=== PATIENT | male | born 1960 | race Caucasian/White ===

== ENCOUNTER 2018-12-12 06:37 | Day surgery (SDC) | payer MEDICARE, MEDICAID ==
--- NOTE | 2018-12-11 11:38 | PCM.PREANE ---
Preanesthetic Assessment - Anesthesia/Transfusion/Family Hx Anesthesia History: Prior Anesthesia Without Reaction Family History of Anesthesia Reaction: No Transfusion History: No Prior Transfusion(s) Intubation History: Unknown - Review of Systems General: No Symptoms Pulmonary: No Symptoms (Quit smoking in the /ETOH rarely) Cardiovascular: No Symptoms (HTN, Diastolic Dysfunction) Gastrointestinal: No Symptoms (History of gastritis) Neurological: No Symptoms (moderate intellectual disabilites), Numbness (right arm numbness since fall.) Other: Reports: Thyroid Problems (hypothyroid), Sinus Problem (allergic rhinits) - Physical Assessment NPO Status Date: 12/11/18 NPO Status Time: 17:00 Pulse: 75 O2 Sat by Pulse Oximetry: 95 Respiratory Rate: 16 Blood Pressure: 156/93 Temperature: 36.2 C Height: 1.73 m Weight: 106.141 kg ASA Class: 2 Mental Status: Alert & Oriented x3 Airway Class: Mallampati = 2 Dentition: Reports: Normal Dentition, Missing Tooth/Teeth Thyro-Mental Finger Breadths: 3 Mouth Opening Finger Breadths: 3 ROM/Head Extension: Full Lungs: Clear to Auscultation, Normal Respiratory Effort Cardiovascular: Regular Rate, Regular Rhythm, No Murmurs - Allergies Allergies/Adverse Reactions: Allergies Allergy/AdvReac Type Severity Reaction Status Date / Time codeine Allergy Mild Cannot Verified 12/11/18 12:28 Remember Penicillins Allergy Mild Cannot Verified 12/11/18 12:28 Remember procaine HCl [From Novocain] Allergy Mild Cannot Verified 12/11/18 12:28 Remember bee stings Allergy Severe Anaphylactic Uncoded 12/11/18 12:28 Shock wasps Allergy Severe Anaphylactic Uncoded 12/11/18 12:28 Shock - Anesthesia Plan Pre-Op Medication Ordered: Beta Ralf Beta Ralf: Metoprolol Med Last Dose Date: 12/11/18 Med Last Dose Time: 05:40 - Acknowledgements Anesthesia Type Planned: MAC Pt an Appropriate Candidate for the Planned Anesthesia: Yes Alternatives and Risks of Anesthesia Discussed w Pt/Guardian: Yes Pt/Guardian Understands and Agrees with Anesthesia Plan: Yes PreAnesthesia Questionnaire - HOME MEDS Home Medications: Home Meds Acetaminophen 650 mg PO Q4H PRN 12/11/18 [History] Camphor/Menthol [Sarna Lotion] 1 applic TP TID 12/11/18 [History] Cetirizine [ZyrTEC] 10 mg PO DAILY 12/11/18 [History] Cholecalciferol (Vitamin D3) [Vitamin D3] 1,000 units PO DAILY 12/11/18 [History ] Clotrimazole [Lotrimin AF 1% Crm] 30 gm TOP BID 12/11/18 [History] Docusate Sodium [Colace] 100 mg PO DAILY 12/11/18 [History] EPINEPHrine [Epinephrine] 0.3 mg IM ASDIRECTED PRN 12/11/18 [History] L. Acidophilus/L.bulgaricus [Lactobacillus Tablet] 1 tab PO DAILY 12/11/18 [ History] Levothyroxine [Synthroid] 50 mcg PO DAILY 12/11/18 [History] Menthol/Zinc Oxide [Calmoseptine] 1 applic TOP ASDIRECTED PRN 12/11/18 [History] Methylcellulose [Fiber Therapy] 500 mg PO DAILY 12/11/18 [History] Metoprolol Succinate [Toprol XL 50mg] 50 mg PO DAILY 12/11/18 [History] Multivitamin [Daily Multiple Vitamin] 1 tab PO DAILY 12/11/18 [History] Nabumetone 500 mg PO BID PRN 12/11/18 [History] Polyethylene Glycol 3350 [MiraLAX] 17 gm PO Q72H 12/11/18 [History] Psyllium [Metamucil] 0.52 gm PO DAILY 12/11/18 [History] Rosuvastatin [Crestor] 5 mg PO DAILY 12/11/18 [History] - CURRENT (IN HOUSE) MEDS Current Meds: Current Medications Lactated Ringer's (Ringers, Lactated) 1,000 mls @ 125 mls/hr IV ASDIRECTED K[facility] Stop: 12/12/18 23:00 Lidocaine/Sodium Bicarbonate (Buffered Lidocaine 1% In Ns 8.4%) 0.25 ml IDERM ONETIME PRN PRN Reason: Prior to IV Start Stop: 12/12/18 18:00 Sodium Chloride (Saline Flush) 10 ml FLUSH ASDIRECTED PRN PRN Reason: Keep Vein Open Stop: 12/12/18 18:00
[2018-12-12] MEDS ORDERED: fentaNYL 100 MCG/2 ML SDV ONE (06:49)
[2018-12-12] MEDS ORDERED: Propofol 200 MG/20 ML SDV ONE (06:49)
[2018-12-12] MEDS ORDERED: Lidocaine 1% 6 ML ONE (06:49)
[2018-12-12] MEDS ORDERED: Midazolam 1 MG/ML 2 ML SDV ONE (06:49)
[2018-12-12] MEDS ORDERED: Ondansetron 4 MG/2 ML SDV ONE (06:49)
[2018-12-12] MEDS ORDERED: Lactated Ringers 1,000 ML IV SCH (07:00)
[2018-12-12] MEDS ORDERED: Lidocaine 1%/Sod Bicarbonate in NS 8.4% 1 ML Syringe IDERM PRN (07:00)
[2018-12-12] MEDS ORDERED: Sodium Chloride 0.9% 10 ML Syringe FLUSH PRN (07:00)
[2018-12-12] MEDS ORDERED: Triamcinolone Acetonide 40 MG/ML 1 ML MDV ONE (07:01)
[2018-12-12] MEDS ORDERED: Bupivacaine 0.25% 10 ML SDV ONE (07:01)
--- NOTE | 2018-12-12 09:50 | PCM48HPAN ---
Post Anesthesia Note - EVALUATION WITHIN 48HRS OF ANESTHETIC Vital Signs in Normal Range: Yes Patient Participated in Evaluation: Yes Respiratory Function Stable: Yes Airway Patent: Yes Cardiovascular Function Stable: Yes Hydration Status Stable: Yes Pain Control Satisfactory: Yes Nausea and Vomiting Control Satisfactory: Yes Mental Status Recovered: Yes
--- NOTE | 2018-12-13 11:39 | PCM.OPNOTE ---
- General Post-Op/Procedure Note Date of Surgery/Procedure: 12/12/18 Operative Procedure(s): right shoulder manipulation under anesthesia with corticosteroid injection Pre Op Diagnosis: right shoulder adhesive capsulitis Post-Op Diagnosis: Same Anesthesia Technique: MAC Primary Surgeon: Jefferson Xiao Anesthesia Provider: Leana Marcum EBL in mLs: 0 Complications: None Condition: Good
--- NOTE | 2018-12-13 12:10 | OR ---
DATE OF OPERATION: 12/12/2018 SURGEON: Jefferson Xiao MD OPERATION PERFORMED: Right shoulder manipulation under anesthesia with corticosteroid injection. PREOPERATIVE DIAGNOSIS: Right shoulder adhesive capsulitis. POSTOPERATIVE DIAGNOSIS: Right shoulder adhesive capsulitis. ANESTHESIA: MAC. PLATE MAKER: None. ANESTHESIA PROVIDER: Karie Garces. ESTIMATED BLOOD LOSS: Not applicable. COMPLICATIONS: None. CONDITION: Stable. DESCRIPTION OF PROCEDURE: The patient was identified in the preop holding area and proper site was marked and identified by the surgeon. The patient was taken back to the OR after adequate anesthesia. OR time-out was performed. At this time, pre-manipulation motion was measured. The patient only had 40 degrees of forward elevation and - 5 degrees of external rotation and only 50-60 degrees of abduction. At this time, the patient's glenohumeral joint was manipulated and I was able to get him to 60 degrees of external rotation, 160 degrees of forward elevation, and 160 degrees of abduction. The patient was noted to have severe tightness noted throughout this and it did take significant effort. At this time, under sterile technique, 2 mL of 40 mg Kenalog and 4 mL of 0.25% Marcaine were injected into the right glenohumeral joint. The patient tolerated it well and will follow up with physical therapy tomorrow. JOHN /[id number]
== END 2018-12-12 09:13 | disposition home or self-care (01) ==
LOC: JD.SDS 06:37
PROVIDERS: ATTEND Orthopaedic Surgery
DX: M75.01 Adhesive capsulitis of right shoulder (principal); M17.10 Unilateral primary osteoarthritis, unspecified knee; I10 Essential (primary) hypertension; E78.00 Pure hypercholesterolemia, unspecified; E03.9 Hypothyroidism, unspecified; E16.2 Hypoglycemia, unspecified; Z88.0 Allergy status to penicillin; Z88.5 Allergy status to narcotic agent; Z91.030 Bee allergy status; Z87.891 Personal history of nicotine dependence; Z79.82 Long term (current) use of aspirin; Z79.899 Other long term (current) drug therapy
CPT/HCPCS: 01620; J2001; J2250; J2405; J2704; J3010; J3301; J3490; J7120

== ENCOUNTER 2019-04-22 06:41 | Inpatient (IN) | payer MEDICARE, MEDICAID ==
[~2019-04-22 06:41] MED LIST: Lactated Ringers 1,000 ML IV SCH; Lidocaine 1%/Sod Bicarbonate in NS 8.4% 1 ML Syringe IDERM PRN; Sodium Chloride 0.9% 10 ML Syringe FLUSH PRN
[2019-04-22] MEDS ORDERED: EPINEPHrine 1 MG/1 ML Amp ONE (07:32)
[2019-04-22] MEDS ORDERED: Ropivacaine 0.5% 5 MG/ML 30 ML SDV ONE (07:32)
--- NOTE | 2019-04-22 07:38 | PCM.PREANE ---
Preanesthetic Assessment - Procedure Proposed Procedure: left total knee - Anesthesia/Transfusion/Family Hx Anesthesia History: Prior Anesthesia Without Reaction Family History of Anesthesia Reaction: No Transfusion History: No Prior Transfusion(s) Intubation History: Unknown - Review of Systems General: No Symptoms Pulmonary: No Symptoms Cardiovascular: No Symptoms Gastrointestinal: No Symptoms Neurological: No Symptoms, Other (baseline intellectual disabilities ) Other: Reports: Thyroid Problems - Physical Assessment NPO Status Date: 04/21/19 NPO Status Time: 18:30 Vital Signs: Last Vital Signs Temp 36.2 C 04/22/19 06:50 Pulse 82 04/22/19 06:50 Resp 16 04/22/19 06:50 BP 139/100 H 04/22/19 06:50 Pulse Ox 97 04/22/19 06:50 Height: 1.8 m Weight: 104.4 kg ASA Class: 2 Mental Status: Alert & Oriented x3 Airway Class: Mallampati = 3 Dentition: Reports: Missing Tooth/Teeth (multiple missing, bottom right and left and upper right side ) Thyro-Mental Finger Breadths: 3 Mouth Opening Finger Breadths: 3 ROM/Head Extension: Full Lungs: Clear to Auscultation, Normal Respiratory Effort Cardiovascular: Regular Rate, Regular Rhythm - Lab Values: Laboratory Last Values MRSA (PCR) Negative 04/09/19 12:02 - Allergies Allergies/Adverse Reactions: Allergies Allergy/AdvReac Type Severity Reaction Status Date / Time codeine Allergy Mild Cannot Verified 04/19/19 13:14 Remember Penicillins Allergy Mild Cannot Verified 04/19/19 13:14 Remember procaine HCl [From Novocain] Allergy Mild Cannot Verified 04/19/19 13:14 Remember bee stings Allergy Severe Anaphylactic Uncoded 04/19/19 13:14 Shock wasps Allergy Severe Anaphylactic Uncoded 04/19/19 13:14 Shock - Blood Blood Available: No - Anesthesia Plan Pre-Op Medication Ordered: None Beta Ralf: Metoprolol Med Last Dose Date: 04/22/19 Med Last Dose Time: 06:25 - Acknowledgements Anesthesia Type Planned: Spinal Pt an Appropriate Candidate for the Planned Anesthesia: Yes Alternatives and Risks of Anesthesia Discussed w Pt/Guardian: Yes Pt/Guardian Understands and Agrees with Anesthesia Plan: Yes PreAnesthesia Questionnaire HEENT History: Reports: Impaired Vision Cardiovascular History: Reports: High Cholesterol, Hypertension, Other (See Below) Other Cardiovascular History: Diastolic dysfunction, sinus tachycardia Respiratory History: Reports: None Gastrointestinal History: Reports: Other (See Below) Other Gastrointestinal History: Colon polyps, anal fistula, internal hemorrhoids Genitourinary History: Reports: None [employer] History: Reports: None Musculoskeletal History: Reports: Osteoarthritis Neurological History: Reports: None Psychiatric History: Reports: Learning Disability Other Psychiatric History: Moderate intellectual disabilities, insomnia Endocrine/Metabolic History: Reports: Hypothyroidism Other Endocrine/Metabolic History: Hyperglycemia Hematologic History: Reports: None Immunologic History: Reports: None Oncologic (Cancer) History: Reports: None Other Dermatologic History: Necrotizing fasciitis - Past Surgical History Head Surgeries/Procedures: Reports: None HEENT Surgical History: Reports: None Cardiovascular Surgical History: Reports: None Respiratory Surgical History: Reports: None GI Surgical History: Reports: Appendectomy, Colonoscopy, Other (See Below) Other GI Surgeries/Procedures: Abdominal surgery for small bowel obstruction, incarcerated hernia repair with mesh, placement of seton, hemorrhoid banding Female Surgical History: Reports: None Male Surgical History: Reports: None Endocrine Surgical History: Reports: None Neurological Surgical History: Reports: C-Spine, Other (See Below) Other Neurological Surgeries/Procedures: Repair of cervical disc Musculoskeletal Surgical History: Reports: Arthroscopic Knee Other Musculoskeletal Surgeries/Procedures:: Fasciotomy of left leg Oncologic Surgical History: Reports: None - SUBSTANCE USE Smoking Status *Q: Former Smoker Recreational Drug Use History: No - HOME MEDS Home Medications: Home Meds Acetaminophen 650 mg PO Q4H PRN 12/11/18 [History] Camphor/Menthol [Sarna Lotion] 1 applic TP TID 12/11/18 [History] Cetirizine [ZyrTEC] 10 mg PO DAILY 12/11/18 [History] Clotrimazole [Lotrimin AF 1% Crm] 30 gm TOP BID 12/11/18 [History] Docusate Sodium [Colace] 100 mg PO DAILY 12/11/18 [History] EPINEPHrine [Epinephrine] 0.3 mg IM ASDIRECTED PRN 12/11/18 [History] L. Acidophilus/L.bulgaricus [Lactobacillus Tablet] 1 tab PO DAILY 12/11/18 [ History] Menthol/Zinc Oxide [Calmoseptine] 1 applic TOP ASDIRECTED PRN 12/11/18 [History] Methylcellulose [Fiber Therapy] 1,500 mg PO DAILY 12/11/18 [History] Metoprolol Succinate [Toprol XL 50mg] 50 mg PO DAILY 12/11/18 [History] Multivitamin [Daily Multiple Vitamin] 1 tab PO DAILY 12/11/18 [History] Nabumetone 500 mg PO BID PRN 12/11/18 [History] Polyethylene Glycol 3350 [MiraLAX] 17 gm PO Q72H 12/11/18 [History] Rosuvastatin [Crestor] 5 mg PO DAILY 12/11/18 [History] Aspirin 81 mg PO DAILY 04/19/19 [History] Cholecalciferol (Vitamin D3) [Vitamin D3] 5,000 unit PO DAILY 04/19/19 [History] Levothyroxine [Synthroid] 50 mcg PO DAILY 04/19/19 [History] - CURRENT (IN HOUSE) MEDS Current Meds: Current Medications Aspirin (Ecotrin) 325 mg PO BID KEMAL Bisacodyl (Dulcolax) 5 mg PO DAILY PRN PRN Reason: Constipation Morphine Sulfate 8 mg/Epinephrine HCl 0.3 mg/Cefuroxime Sodium 750 mg/Ketorolac Tromethamine 30 mg/Sodium Chloride 27.9 ml 0 mg .XX ONETIME ONE Stop: 04/22/19 09:01 Cyclobenzaprine HCl (Flexeril) 10 mg PO BID PRN PRN Reason: Spasms Docusate Sodium (Colace) 100 mg PO BID KEMAL Famotidine (Pepcid) 20 mg PO Q12H K[facility] Hydromorphone HCl (Dilaudid) 0.2 mg IVPUSH Q2H PRN PRN Reason: Pain (moderate 4-6) Lactated Ringer's (Ringers, Lactated) 1,000 mls @ 125 mls/hr IV ASDIRECTED [facility] Stop: 04/22/19 23:00 Cefazolin Sodium/Dextrose 2 gm (/ Premix) 50 mls @ 100 mls/hr IV Q8H [facility] Stop: 04/22/19 23:29 Ketorolac Tromethamine (Toradol) 15 mg IVPUSH Q6H PRN PRN Reason: Pain Lidocaine/Sodium Bicarbonate (Buffered Lidocaine 1% In Ns 8.4%) 0.25 ml IDERM ONETIME PRN PRN Reason: Prior to IV Start Stop: 04/22/19 18:00 Magnesium Hydroxide (Milk Of Magnesia) 30 ml PO BID PRN PRN Reason: Constipation Naloxone HCl (Narcan) 0.1 mg IVPUSH Q5M PRN PRN Reason: Oversedation Ondansetron HCl (Zofran) 4 mg IVPUSH Q6H PRN PRN Reason: Nausea/Vomiting Oxycodone/Acetaminophen (Percocet 325-5 Mg) 1 - 2 tab PO Q4H PRN PRN Reason: Pain Senna (Senna) 8.6 mg PO BID PRN PRN Reason: Constipation Sodium Chloride (Saline Flush) 10 ml FLUSH ASDIRECTED PRN PRN Reason: Keep Vein Open Stop: 04/22/19 18:00 Discontinued Medications Bupivacaine HCl (Sensorcaine-Mpf 0.25%) Confirm Administered Dose 30 ml .ROUTE .STK-MED ONE Stop: 04/22/19 07:04 Cefazolin Sodium (Ancef) Confirm Administered Dose 2 gm .ROUTE .STK-MED ONE Stop: 04/22/19 07:04 Iodine (Iodine 2% Mild Tincture) Confirm Administered Dose 30 ml .ROUTE .STK- MED ONE Stop: 04/22/19 07:04 Tranexamic Acid (Cyklokapron) Confirm Administered Dose 1,000 mg .ROUTE .STK- MED ONE Stop: 04/22/19 07:03 Vancomycin HCl (Vancomycin) Confirm Administered Dose 1 gm .ROUTE .STK-MED ONE Stop: 04/22/19 07:03
[2019-04-22] MEDS ORDERED: Midazolam 1 MG/ML 2 ML SDV ONE (07:52)
[2019-04-22] MEDS ORDERED: Propofol 200 MG/20 ML SDV ONE ×3 (07:52→10:22)
[2019-04-22] MEDS ORDERED: Lidocaine 1% 4 ML ONE (07:53)
[2019-04-22] MEDS ORDERED: ceFAZolin 1 GM Vial ONE (07:54)
[2019-04-22] MEDS ORDERED: Ondansetron 4 MG/2 ML SDV ONE (07:56)
[2019-04-22] MEDS ORDERED: Ketamine 500 mg/10 ML MDV ONE (09:03)
[2019-04-22] MEDS ORDERED: Lactated Ringers 1,000 ML ONE (09:18)
[2019-04-22] MEDS: Bupivacaine 0.25% 10 ML SDV ONE ×2 (09:28→10:07)
[2019-04-22] MEDS: Iodine/Sodium Iodide 2% Tincture 30 ML Bottle ONE ×2 (09:28→09:59)
[2019-04-22] MEDS: ceFAZolin 1 GM Vial ONE ×2 (09:28→10:03)
[2019-04-22] MEDS: Morphine 8 MG, EPINEPHrine 0.3 MG, Cefuroxime 750 MG, Ketorolac 30 MG, Sodium Chloride ... ONE ×10 (09:29→10:06)
[2019-04-22] MEDS: Vancomycin 1 GM SDV ONE ×2 (09:30→10:15)
[2019-04-22] MEDS ORDERED: EPINEPHRINE 0.3 MG IM PRN (10:35)
[2019-04-22] MEDS ORDERED: Menthol/Zinc Oxide Ointment 3.5 GM Tube TOP PRN (10:35)
--- NOTE | 2019-04-22 10:51 | PCM.POSTAN ---
POST ANESTHESIA ASSESSMENT - MENTAL STATUS Mental Status: Alert - VITAL SIGNS Vital Signs: Last Vital Signs Temp 36.2 C 04/22/19 06:50 Pulse 82 04/22/19 06:50 Resp 16 04/22/19 06:50 BP 139/100 H 04/22/19 06:50 Pulse Ox 97 04/22/19 06:50 - RESPIRATORY Respiratory Status: Respiratory Rate WNL, Airway Patent, O2 Saturation Stable, Supplemental Oxygen - CARDIOVASCULAR CV Status: Pulse Rate WNL, Blood Pressure Stable - GASTROINTESTINAL GI Status: No Symptoms - PAIN Pain Score: 0 - POST OP HYDRATION Hydration Status: Adequate & Stable
[2019-04-22] MEDS ORDERED: Ondansetron 4 MG/2 ML SDV IVPUSH PRN ×2 (10:54→11:00)
[2019-04-22] MEDS ORDERED: diphenhydrAMINE 50 MG/ML SDV IVPUSH PRN (10:54)
[2019-04-22] MEDS ORDERED: fentaNYL 100 MCG/2 ML SDV IVPUSH PRN (10:54)
[2019-04-22] MEDS ORDERED: Sennosides 8.6 MG Tab PO PRN (11:00)
[2019-04-22] MEDS ORDERED: Bisacodyl 5 MG Tab PO PRN (11:00)
[2019-04-22] MEDS ORDERED: Magnesium Hydroxide 400 MG/5 ML Susp 30 ML Cup PO PRN (11:00)
[2019-04-22] MEDS ORDERED: HYDROmorphone 0.5 MG/0.5 ML Syringe IVPUSH PRN (11:00)
[2019-04-22] MEDS ORDERED: Naloxone 0.4 MG/ML SDV IVPUSH PRN (11:00)
--- NOTE | 2019-04-22 11:19 | PCM.SN ---
- Free Text/Narrative Note: Left selective femoral nerve block at the adductor canal for post-procedure pain control Time Out: 1057 Start: 1059 End: 1113 Chart reviewed. Consent signed. Questions answered. Appropriate monitors applied. Time out performed. Left mid-shaft femur evaluated with ultrasound. Scanning medially femur, I was able to identify the femoral artery in the adductor canal. The saphenous nerve was lateral to the artery. The skin was prepped lateral to the ultrasound probe with chlorahexadine. The 21ga 4 insulated block needle was inserted under direct ultrasound guidance into the adductor canal. 20mL of 0.5% ropivacaine with 1:200,000 epinephrine was injected cirmcumferentially about the nerve with intermittent negative aspiration every 5mL. Patient tolerated the procedure well. No complications noted. See pictures on progress note and vital signs on nurses notes. Block completed postoperatively.
[2019-04-22] MEDS ORDERED: Ketorolac 15 MG/ML SDV IVPUSH SCH (11:30)
--- NOTE | 2019-04-22 12:12 | CR ---
Left knee: AP and lateral views of the left knee were obtained. Comparison: Previous left knee radiographic study of 07/27/11. Recently placed left knee prosthesis is noted. Components are aligned. Underlying bony structures are intact. Soft tissue air is noted from the surgical procedure. Impression: 1. Satisfactory postop radiographic appearance of recently placed left knee prosthesis. Diagnostic code #2
[2019-04-22] MEDS: MENTHOL TOP SCH ×2 (16:07→21:12)
[2019-04-22] MEDS: CAMPHOR TOP SCH ×2 (16:07→21:12)
[2019-04-22] MEDS: ceFAZolin 2 GM in Premix Bag 1 BAG IV SCH (16:57)
[2019-04-22] MEDS: Acetaminophen/oxyCODONE 325-5 MG Tab PO PRN (19:50)
[2019-04-22] MEDS: Famotidine 20 MG Tab PO SCH (21:08)
[2019-04-22] MEDS: Docusate Sodium 100 MG Cap PO SCH (21:08)
[2019-04-22] MEDS: Ketorolac 15 MG/ML SDV IVPUSH PRN (21:11)
[2019-04-23] MEDS: ceFAZolin 2 GM in Premix Bag 1 BAG IV SCH ×2 (00:53→08:10)
[2019-04-23] MEDS: Levothyroxine 50 MCG Tab PO SCH (06:54)
[2019-04-23] MEDS: Ketorolac 15 MG/ML SDV IVPUSH PRN ×2 (06:55→20:29)
[2019-04-23] MEDS: Acetaminophen/oxyCODONE 325-5 MG Tab PO PRN ×3 (08:08→19:01)
[2019-04-23] MEDS: Docusate Sodium 100 MG Cap PO SCH ×2 (08:10→20:31)
[2019-04-23] MEDS: Multivitamins,Therapeutic Tab PO SCH (08:10)
[2019-04-23] MEDS: Famotidine 20 MG Tab PO SCH ×2 (08:11→20:30)
[2019-04-23] MEDS: Rosuvastatin 10 MG Tab PO SCH (08:11)
[2019-04-23] MEDS: Loratadine 10 MG Tab PO SCH (08:11)
[2019-04-23] MEDS: Saccharomyces Boulardii (Probiotic) 250 MG Cap PO SCH (08:11)
[2019-04-23] MEDS: Aspirin 325 MG Tab.EC PO SCH ×2 (08:11→20:30)
[2019-04-23] MEDS: Cholecalciferol (Vitamin D3) 5,000 UNIT Tab PO SCH (08:11)
[2019-04-23] MEDS: Metoprolol Succinate 50 MG Tab.ER PO SCH (08:13)
[2019-04-23] MEDS: Clotrimazole 1% Crm 30 GM Tube TOP SCH ×2 (08:14→20:33)
[2019-04-23] MEDS: CAMPHOR TOP SCH ×3 (08:14→21:25)
[2019-04-23] MEDS: MENTHOL TOP SCH ×3 (08:14→21:25)
--- NOTE | 2019-04-23 08:16 | PCM48HPAN ---
Post Anesthesia Note - EVALUATION WITHIN 48HRS OF ANESTHETIC Vital Signs in Normal Range: Yes Patient Participated in Evaluation: Yes Respiratory Function Stable: Yes Airway Patent: Yes Cardiovascular Function Stable: Yes Hydration Status Stable: Yes Pain Control Satisfactory: Yes Nausea and Vomiting Control Satisfactory: Yes Mental Status Recovered: Yes (sitting up in chair- doing "good") Vital Signs: Last Vital Signs Temp 99.1 F 04/23/19 04:53 Pulse 81 04/23/19 04:53 Resp 18 04/23/19 04:53 BP 158/72 H 04/23/19 04:53 Pulse Ox 97 04/23/19 04:53
--- NOTE | 2019-04-23 08:39 | PCM.SURGPN ---
- General Info Date of Service: 04/23/19 POD#: 1 Functional Status: Reports: Tolerating Diet, Ambulating, Urinating, Incentive Spirometry - Patient Data Vitals - Most Recent: Last Vital Signs Temp 98.4 F 04/23/19 08:13 Pulse 94 04/23/19 08:13 Resp 18 04/23/19 08:13 BP 147/72 H 04/23/19 08:13 Pulse Ox 94 L 04/23/19 08:13 Weight - Most Recent: 230 lb 2.601 oz I&O - Last 24 Hours: Intake & Output 04/22/19 04/23/19 04/23/19 22:59 06:59 14:59 Intake Total 1590 1600 Output Total 500 1350 Balance 1090 250 Lab Results Last 24 Hrs: Laboratory Results - last 24 hr 04/23/19 04/23/19 Range/Units 06:19 06:19 WBC 9.50 H (4.23-9.07) K/mm3 RBC 3.78 L (4.63-6.08) M/mm3 Hgb 12.0 L (13.7-17.5) gm/dl Hct 35.5 L (40.1-51.0) % MCV 93.9 H (79.0-92.2) fl MCH 31.7 (25.7-32.2) pg MCHC 33.8 (32.2-35.5) g/dl RDW Std Deviation 42.5 (35.1-43.9) fL Plt Count 189 (163-337) K/mm3 MPV 10.8 (9.4-12.3) fl Sodium 137 (136-145) mEq/L Potassium 4.4 (3.5-5.1) mEq/L Chloride 102 (98-107) mEq/L Carbon Dioxide 27 (21-32) mEq/L Anion Gap 12.4 (5-15) BUN 21 H (7-18) mg/dL Creatinine 1.1 (0.7-1.3) mg/dL Est Cr Clr Drug Dosing 76.06 mL/min Estimated GFR (MDRD) > 60 (>60) mL/min BUN/Creatinine Ratio 19.1 H (14-18) Glucose 134 H (74-106) mg/dL Calcium 8.3 L (8.5-10.1) mg/dL Total Bilirubin 0.6 (0.2-1.0) mg/dL AST 16 (15-37) U/L ALT 21 (16-63) U/L Alkaline Phosphatase 85 (46-116) U/L Total Protein 6.0 L (6.4-8.2) g/dl Albumin 3.0 L (3.4-5.0) g/dl Globulin 3.0 gm/dL Albumin/Globulin Ratio 1.0 (1-2) Med Orders - Current: Current Medications Aspirin (Ecotrin) 325 mg PO BID [facility] Last Admin: 04/23/19 08:11 Dose: 325 mg Bisacodyl (Dulcolax) 5 mg PO DAILY PRN PRN Reason: Constipation Calamine/Phenol (Calmoseptine) 0 gm TOP ASDIRECTED PRN PRN Reason: Itching/Rash Cholecalciferol (Vitamin D3) 5,000 unit PO DAILY [facility] Last Admin: 04/23/19 08:11 Dose: 5,000 unit Clotrimazole (Lotrimin Af 1% Crm) 0 gm TOP BID [facility] Last Admin: 04/23/19 08:14 Dose: Not Given Cyclobenzaprine HCl (Flexeril) 10 mg PO BID PRN PRN Reason: Spasms Docusate Sodium (Colace) 100 mg PO BID [facility] Last Admin: 04/23/19 08:10 Dose: 100 mg Famotidine (Pepcid) 20 mg PO Q12H [facility] Last Admin: 04/23/19 08:11 Dose: 20 mg Hydromorphone HCl (Dilaudid) 0.2 mg IVPUSH Q2H PRN PRN Reason: Pain (moderate 4-6) Cefazolin Sodium/Dextrose 2 gm (/ Premix) 50 mls @ 100 mls/hr IV Q8H [facility] Stop: 04/23/19 09:29 Last Admin: 04/23/19 08:10 Dose: 100 mls/hr Ketorolac Tromethamine (Toradol) 15 mg IVPUSH Q6H PRN PRN Reason: Pain Last Admin: 04/23/19 06:55 Dose: 15 mg Levothyroxine Sodium (Synthroid) 50 mcg PO ACBREAKFAST [facility] Last Admin: 04/23/19 06:54 Dose: 50 mcg Loratadine (Claritin) 10 mg PO DAILY [facility] Last Admin: 04/23/19 08:11 Dose: 10 mg Magnesium Hydroxide (Milk Of Magnesia) 30 ml PO BID PRN PRN Reason: Constipation Metoprolol Succinate (Toprol Xl) 50 mg PO DAILY [facility] Last Admin: 04/23/19 08:13 Dose: 50 mg Multivitamins (Thera) 1 each PO DAILY [facility] Last Admin: 04/23/19 08:10 Dose: 1 each Naloxone HCl (Narcan) 0.1 mg IVPUSH Q5M PRN PRN Reason: Oversedation Ondansetron HCl (Zofran) 4 mg IVPUSH Q6H PRN PRN Reason: Nausea/Vomiting Oxycodone/Acetaminophen (Percocet 325-5 Mg) 1 - 2 tab PO Q4H PRN PRN Reason: Pain Last Admin: 04/23/19 08:08 Dose: 2 tab Camphor/Menthol (Ptom) 0 each TOP TID [facility] Last Admin: 04/23/19 08:14 Dose: Not Given Polyethylene Glycol (Miralax) 17 gm PO Q72H [facility] Last Admin: 04/23/19 08:17 Dose: 17 gm Rosuvastatin Calcium (Crestor) 5 mg PO DAILY [facility] Last Admin: 04/23/19 08:11 Dose: 5 mg Saccharomyces Boulardii (Florastor) 250 mg PO DAILY [facility] Last Admin: 04/23/19 08:11 Dose: 250 mg Senna (Senna) 8.6 mg PO BID PRN PRN Reason: Constipation Discontinued Medications Bupivacaine HCl (Sensorcaine-Mpf 0.25%) Confirm Administered Dose 30 ml .ROUTE .STK-MED ONE Stop: 04/22/19 07:04 Last Admin: 04/22/19 10:07 Dose: 30 ml Cefazolin Sodium (Ancef) Confirm Administered Dose 2 gm .ROUTE .STK-MED ONE Stop: 04/22/19 07:04 Last Admin: 04/22/19 10:03 Dose: 2 gm Cefazolin Sodium (Ancef) Confirm Administered Dose 2 gm .ROUTE .STK-MED ONE Stop: 04/22/19 07:55 Morphine Sulfate 8 mg/Epinephrine HCl 0.3 mg/Cefuroxime Sodium 750 mg/Ketorolac Tromethamine 30 mg/Sodium Chloride 27.9 ml 0 mg .XX ONETIME ONE Stop: 04/22/19 09:01 Last Admin: 04/22/19 10:06 Dose: 788.3 mg Diphenhydramine HCl (Benadryl) 25 mg IVPUSH Q6H PRN PRN Reason: pruritis Stop: 04/22/19 23:00 Epinephrine HCl (Adrenalin) Confirm Administered Dose 1 mg .ROUTE .STK-MED ONE Stop: 04/22/19 07:33 Fentanyl (Sublimaze) 50 mcg IVPUSH Q5M PRN PRN Reason: Pain Stop: 04/22/19 23:00 Lactated Ringer's (Ringers, Lactated) 1,000 mls @ 125 mls/hr IV ASDIRECTED KEMAL Stop: 04/22/19 23:00 Last Admin: 04/22/19 07:30 Dose: 125 mls/hr Lidocaine HCl (Xylocaine-Mpf 1%) Confirm Administered Dose 4 mls @ as directed .ROUTE .STK-MED ONE Stop: 04/22/19 07:54 Lactated Ringer's (Ringers, Lactated) Confirm Administered Dose 1,000 mls @ as directed .ROUTE .STK-MED ONE Stop: 04/22/19 09:19 Iodine (Iodine 2% Mild Tincture) Confirm Administered Dose 30 ml .ROUTE .STK- MED ONE Stop: 04/22/19 07:04 Last Admin: 04/22/19 09:59 Dose: 18 ml Ketamine HCl (Ketalar) Confirm Administered Dose 500 mg .ROUTE .STK-MED ONE Stop: 04/22/19 09:04 Ketorolac Tromethamine (Toradol) 15 mg IVPUSH ONETIME [facility] Stop: 04/22/19 13:00 Lidocaine/Sodium Bicarbonate (Buffered Lidocaine 1% In Ns 8.4%) 0.25 ml IDERM ONETIME PRN PRN Reason: Prior to IV Start Stop: 04/22/19 18:00 Midazolam HCl (Versed 1 Mg/Ml) Confirm Administered Dose 2 mg .ROUTE .STK-MED ONE Stop: 04/22/19 07:53 Non-Formulary Medication (Epinephrine [Epinephrine]) 0.3 mg IM ASDIRECTED PRN PRN Reason: Allergic Reaction Non-Formulary Medication (Methylcellulose) 1,500 mg PO DAILY [facility] Ondansetron HCl (Zofran) Confirm Administered Dose 4 mg .ROUTE .STK-MED ONE Stop: 04/22/19 07:57 Ondansetron HCl (Zofran) 4 mg IVPUSH ONETIME PRN PRN Reason: Nausea/Vomiting Stop: 04/22/19 23:00 Propofol (Diprivan 20 Ml) Confirm Administered Dose 400 mg .ROUTE .STK-MED ONE Stop: 04/22/19 07:53 Propofol (Diprivan 20 Ml) Confirm Administered Dose 200 mg .ROUTE .STK-MED ONE Stop: 04/22/19 09:41 Propofol (Diprivan 20 Ml) Confirm Administered Dose 200 mg .ROUTE .STK-MED ONE Stop: 04/22/19 10:23 Ropivacaine (Naropin 0.5%) Confirm Administered Dose 30 ml .ROUTE .STK-MED ONE Stop: 04/22/19 07:33 Sodium Chloride (Saline Flush) 10 ml FLUSH ASDIRECTED PRN PRN Reason: Keep Vein Open Stop: 04/22/19 18:00 Tranexamic Acid (Cyklokapron) Confirm Administered Dose 1,000 mg .ROUTE .STK- MED ONE Stop: 04/22/19 07:03 Last Admin: 04/22/19 10:14 Dose: 1,000 mg Vancomycin HCl (Vancomycin) Confirm Administered Dose 1 gm .ROUTE .STK-MED ONE Stop: 04/22/19 07:03 Last Admin: 04/22/19 10:15 Dose: 1 gm - Exam Wound/Incisions: Dressing Dry and Intact General: Alert, Cooperative, No Acute Distress Lungs: Normal Respiratory Effort Extremities: Other (NVS intact for BLE. Coty's negative.) - Problem List Review Problem List Initiated/Reviewed/Updated: Yes - My Orders Last 24 Hours: Active Orders 24 hr Category Date Time Status Consult to Case Management/[facility]vee Superintendent [CONS] Cons 04/22/19 14:22 Active Routine Regular Diet [DIET] Diet 04/22/19 Lunch Active Acetaminophen/oxyCODONE [Percocet 325-5 MG] Med 04/22/19 11:00 Active 1 - 2 tab PO Q4H PRN Aspirin [Ecotrin] Med 04/23/19 09:00 Active 325 mg PO BID Bisacodyl [Dulcolax] Med 04/22/19 11:00 Active 5 mg PO DAILY PRN Cholecalciferol (Vitamin D3) [Vitamin D3] Med 04/23/19 09:00 Active 5,000 unit PO DAILY Clotrimazole [Lotrimin AF 1% Crm] Med 04/23/19 09:00 Active 0 gm TOP BID Cyclobenzaprine [Flexeril] Med 04/22/19 11:00 Active 10 mg PO BID PRN Docusate Sodium [Colace] Med 04/22/19 21:00 Active 100 mg PO BID Famotidine [Pepcid] Med 04/22/19 21:00 Active 20 mg PO Q12H HYDROmorphone [Dilaudid] Med 04/22/19 11:00 Active 0.2 mg IVPUSH Q2H PRN Ketorolac [Toradol] Med 04/22/19 11:00 Active 15 mg IVPUSH Q6H PRN Levothyroxine [Synthroid] Med 04/23/19 06:00 Active 50 mcg PO ACBREAKFAST Loratadine [Claritin] Med 04/23/19 09:00 Active 10 mg PO DAILY Magnesium Hydroxide [Milk of Magnesia] Med 04/22/19 11:00 Active 30 ml PO BID PRN Menthol/Zinc Oxide [Calmoseptine] Med 04/22/19 10:35 Active 0 gm TOP ASDIRECTED PRN Metoprolol Succinate [Toprol XL] Med 04/23/19 09:00 Active 50 mg PO DAILY Multivitamins,Therapeutic [Thera] Med 04/23/19 09:00 Active 1 each PO DAILY Naloxone [Narcan] Med 04/22/19 11:00 Active 0.1 mg IVPUSH Q5M PRN Ondansetron [Zofran] Med 04/22/19 11:00 Active 4 mg IVPUSH Q6H PRN Patient's Own Medication [Ptom] Med 04/22/19 15:00 Active 0 each TOP TID Polyethylene Glycol 3350 [MiraLAX] Med 04/23/19 09:00 Active 17 gm PO Q72H Rosuvastatin [Crestor] Med 04/23/19 09:00 Active 5 mg PO DAILY Saccharomyces Boulardii [Florastor] Med 04/23/19 09:00 Active 250 mg PO DAILY Sennosides [Senna] Med 04/22/19 11:00 Active 8.6 mg PO BID PRN ceFAZolin [Ancef] 2 gm Med 04/22/19 17:00 Active Premix Bag 1 bag IV Q8H Medication Orders Aspirin (Ecotrin) 325 mg PO BID [facility] Last Admin: 04/23/19 08:11 Dose: 325 mg Bisacodyl (Dulcolax) 5 mg PO DAILY PRN PRN Reason: Constipation Calamine/Phenol (Calmoseptine) 0 gm TOP ASDIRECTED PRN PRN Reason: Itching/Rash Cholecalciferol (Vitamin D3) 5,000 unit PO DAILY [facility] Last Admin: 04/23/19 08:11 Dose: 5,000 unit Clotrimazole (Lotrimin Af 1% Crm) 0 gm TOP BID [facility] Last Admin: 04/23/19 08:14 Dose: Not Given Cyclobenzaprine HCl (Flexeril) 10 mg PO BID PRN PRN Reason: Spasms Docusate Sodium (Colace) 100 mg PO BID [facility] Last Admin: 04/23/19 08:10 Dose: 100 mg Admin: 04/22/19 21:08 Dose: 100 mg Famotidine (Pepcid) 20 mg PO Q12H [facility] Last Admin: 04/23/19 08:11 Dose: 20 mg Admin: 04/22/19 21:08 Dose: 20 mg Hydromorphone HCl (Dilaudid) 0.2 mg IVPUSH Q2H PRN PRN Reason: Pain (moderate 4-6) Cefazolin Sodium/Dextrose 2 gm (/ Premix) 50 mls @ 100 mls/hr IV Q8H [facility] Stop: 04/23/19 09:29 Last Admin: 04/23/19 08:10 Dose: 100 mls/hr Infusion: 04/23/19 01:23 Dose: 100 mls/hr Admin: 04/23/19 00:53 Dose: 100 mls/hr Infusion: 04/22/19 17:27 Dose: 100 mls/hr Admin: 04/22/19 16:57 Dose: 100 mls/hr Ketorolac Tromethamine (Toradol) 15 mg IVPUSH Q6H PRN PRN Reason: Pain Last Admin: 04/23/19 06:55 Dose: 15 mg Admin: 04/22/19 21:11 Dose: 15 mg Levothyroxine Sodium (Synthroid) 50 mcg PO ACBREAKFAST [facility] Last Admin: 04/23/19 06:54 Dose: 50 mcg Loratadine (Claritin) 10 mg PO DAILY [facility] Last Admin: 04/23/19 08:11 Dose: 10 mg Magnesium Hydroxide (Milk Of Magnesia) 30 ml PO BID PRN PRN Reason: Constipation Metoprolol Succinate (Toprol Xl) 50 mg PO DAILY [facility] Last Admin: 04/23/19 08:13 Dose: 50 mg Multivitamins (Thera) 1 each PO DAILY [facility] Last Admin: 04/23/19 08:10 Dose: 1 each Naloxone HCl (Narcan) 0.1 mg IVPUSH Q5M PRN PRN Reason: Oversedation Ondansetron HCl (Zofran) 4 mg IVPUSH Q6H PRN PRN Reason: Nausea/Vomiting Oxycodone/Acetaminophen (Percocet 325-5 Mg) 1 - 2 tab PO Q4H PRN PRN Reason: Pain Last Admin: 04/23/19 08:08 Dose: 2 tab Admin: 04/22/19 19:50 Dose: 2 tab Camphor/Menthol (Ptom) 0 each TOP TID [facility] Last Admin: 04/23/19 08:14 Dose: Not Given Admin: 04/22/19 21:12 Dose: Admin: 04/22/19 16:07 Dose: Polyethylene Glycol (Miralax) 17 gm PO Q72H [facility] Last Admin: 04/23/19 08:17 Dose: 17 gm Rosuvastatin Calcium (Crestor) 5 mg PO DAILY [facility] Last Admin: 04/23/19 08:11 Dose: 5 mg Saccharomyces Boulardii (Florastor) 250 mg PO DAILY [facility] Last Admin: 04/23/19 08:11 Dose: 250 mg Senna (Senna) 8.6 mg PO BID PRN PRN Reason: Constipation - Assessment Assessment (Free Text/Narrative):: POD#1 - left TKA - Plan Plan (Free Text/Narrative):: 1. Suspect discharge to [facility] for continued rehab. 2. 325mg ASA PO BID, frequent mobility, TEDs, SCDs. 3. Hgb 12.0. The pt's case was discussed with Dr. Xiao.
[2019-04-23] MEDS ORDERED: METHYLCELLULOSE PO SCH (09:00)
[2019-04-23] MEDS ORDERED: Polyethylene Glycol 3350 Powder 17 GM Packet PO SCH (09:00)
--- NOTE | 2019-04-23 18:57 | PCM.CONS ---
H&P History of Present Illness - General Date of Service: 04/23/19 Admit Problem/Dx: Admission Diagnosis/Problem Admission Diagnosis/Problem Osteoarthritis of knee Source of Information: Patient, Old Records, Provider, RN Notes Reviewed, Significant Other - History of Present Illness Initial Comments - Free Text/Narative: This is a 53 yo white female with past medical hx/o HTN, HLD, Hyperglycemia, Hypothyroidism, Diastolic Dysfunction, OA/DJD, Insomnia and Moderate Intellectual Disability, Class I Obesity who recently underwent LTKA. He is doing relatively well POD#1. His pain is fully controlled controlled. He denies any acute issues. His Hgb is stable at 12.0. The hospitalist services were consulted for post operative care. left knee Pain Score (Numeric/FACES): 8 - Related Data Allergies/Adverse Reactions: Allergies Allergy/AdvReac Type Severity Reaction Status Date / Time codeine Allergy Mild Cannot Verified 04/19/19 13:14 Remember Penicillins Allergy Mild Cannot Verified 04/22/19 08:25 Remember procaine HCl [From Novocain] Allergy Mild Cannot Verified 04/19/19 13:14 Remember bee stings Allergy Severe Anaphylactic Uncoded 04/19/19 13:14 Shock wasps Allergy Severe Anaphylactic Uncoded 04/19/19 13:14 Shock Home Medications: Home Meds Camphor/Menthol [Sarna Lotion] 1 applic TP TID 12/11/18 [History] Cetirizine [ZyrTEC] 10 mg PO DAILY 12/11/18 [History] Clotrimazole [Lotrimin AF 1% Crm] 30 gm TOP BID 12/11/18 [History] EPINEPHrine [Epinephrine] 0.3 mg IM ASDIRECTED PRN 12/11/18 [History] L. Acidophilus/L.bulgaricus [Lactobacillus Tablet] 1 tab PO DAILY 12/11/18 [ History] Menthol/Zinc Oxide [Calmoseptine] 1 applic TOP ASDIRECTED PRN 12/11/18 [History] Methylcellulose [Fiber Therapy] 1,500 mg PO DAILY 12/11/18 [History] Metoprolol Succinate [Toprol XL 50mg] 50 mg PO DAILY 12/11/18 [History] Multivitamin [Daily Multiple Vitamin] 1 tab PO DAILY 12/11/18 [History] Polyethylene Glycol 3350 [MiraLAX] 17 gm PO Q72H 12/11/18 [History] Rosuvastatin [Crestor] 5 mg PO DAILY 12/11/18 [History] Cholecalciferol (Vitamin D3) [Vitamin D3] 5,000 unit PO DAILY 04/19/19 [History] Levothyroxine [Synthroid] 50 mcg PO DAILY 04/19/19 [History] Acetaminophen/oxyCODONE [Percocet 325-5 MG] 1 - 2 tab PO Q4H PRN #60 tablet [Rx] Aspirin [Ecotrin EC] 325 mg PO BID #84 tab.ec 04/23/19 [Rx] Bisacodyl [Dulcolax] 5 mg PO DAILY PRN tablet 04/23/19 [Rx] Cyclobenzaprine [Flexeril] 10 mg PO BID PRN #30 tablet 04/23/19 [Rx] Docusate Sodium [Colace] 100 mg PO BID cap 04/23/19 [Rx] Famotidine [Pepcid] 20 mg PO Q12H tablet 04/23/19 [Rx] Magnesium Hydroxide [Milk of Magnesia] 30 ml PO BID PRN cup 04/23/19 [Rx] Sennosides [Senna] 8.6 mg PO BID PRN tablet 04/23/19 [Rx] Past Medical History HEENT History: Reports: Impaired Vision Cardiovascular History: Reports: High Cholesterol, Hypertension, Other (See Below) Other Cardiovascular History: Diastolic dysfunction, sinus tachycardia Respiratory History: Reports: None Gastrointestinal History: Reports: Other (See Below) Other Gastrointestinal History: Colon polyps, anal fistula, internal hemorrhoids Genitourinary History: Reports: None BALE PILER History: Reports: None Musculoskeletal History: Reports: Osteoarthritis Neurological History: Reports: None Psychiatric History: Reports: Learning Disability Other Psychiatric History: Moderate intellectual disabilities, insomnia Endocrine/Metabolic History: Reports: Hypothyroidism Other Endocrine/Metabolic History: Hyperglycemia Hematologic History: Reports: None Immunologic History: Reports: None Oncologic (Cancer) History: Reports: None Other Dermatologic History: Necrotizing fasciitis - Past Surgical History Head Surgeries/Procedures: Reports: None HEENT Surgical History: Reports: None Cardiovascular Surgical History: Reports: None Respiratory Surgical History: Reports: None GI Surgical History: Reports: Appendectomy, Colonoscopy, Other (See Below) Other GI Surgeries/Procedures: Abdominal surgery for small bowel obstruction, incarcerated hernia repair with mesh, placement of seton, hemorrhoid banding Female Surgical History: Reports: None Male Surgical History: Reports: None Endocrine Surgical History: Reports: None Neurological Surgical History: Reports: C-Spine, Other (See Below) Other Neurological Surgeries/Procedures: Repair of cervical disc Musculoskeletal Surgical History: Reports: Arthroscopic Knee Other Musculoskeletal Surgeries/Procedures:: Fasciotomy of left leg Oncologic Surgical History: Reports: None Social & Family History - Tobacco Use Smoking Status *Q: Former Smoker Used Tobacco, but Quit: Yes Month/Year Tobacco Last Used: 1998 - Caffeine Use Caffeine Use: Reports: Coffee, Energy Drinks - Recreational Drug Use Recreational Drug Use: No Drug Use in Last 12 Months: No H&P Review of Systems - Review of Systems: Review Of Systems: ROS reveals no pertinent complaints other than HPI. Exam - Exam Exam: See Below - Vital Signs Vital Signs: Last Vital Signs Temp 37.2 C 04/23/19 15:42 Pulse 86 04/23/19 15:42 Resp 16 04/23/19 15:42 BP 142/86 H 04/23/19 15:42 Pulse Ox 96 04/23/19 15:42 Weight: 104.4 kg - Exam General: Alert, Oriented, Cooperative HEENT: Conjunctiva Clear, EACs Clear, EOMI, Hearing Intact, Mucosa Moist & [place] , Nares Patent, Normal Nasal Septum, Posterior Pharynx Clear, Pupils Equal, Pupils Reactive Neck: Supple, Trachea Midline Lungs: Clear to Auscultation, Normal Respiratory Effort Cardiovascular: Regular Rate, Regular Rhythm GI/Abdominal Exam: Normal Bowel Sounds, Soft, Non-Tender, No Organomegaly, No Distention, No Abnormal Bruit, No Mass (Male) Exam: Deferred Rectal (Males) Exam: Deferred Back Exam: Normal Inspection, Decreased Range of Motion Extremities: Normal Inspection, Normal Range of Motion, Non-Tender, No Pedal Edema, Normal Capillary Refill, Limited Range of Motion (left lower extremity) Peripheral Pulses: 2+: Posterior Tibial (L), Posterior Tibial (R), Dorsalis Pedis (L), Dorsalis Pedis (R) Skin: Warm, Dry, Intact Neuro Extensive - Mental Status: Oriented x3, Normal Cognition, Memory Intact Neuro Extensive - Motor, Sensory, Reflexes: CN II-XII Intact (limited but grossly intact), Abnormal Gait Psychiatric: Alert, Normal Affect, Normal Mood - Patient Data Lab Results Last 24 hrs: Laboratory Results - last 24 hr 04/23/19 04/23/19 Range/Units 06:19 06:19 WBC 9.50 H (4.23-9.07) K/mm3 RBC 3.78 L (4.63-6.08) M/mm3 Hgb 12.0 L (13.7-17.5) gm/dl Hct 35.5 L (40.1-51.0) % MCV 93.9 H (79.0-92.2) fl MCH 31.7 (25.7-32.2) pg MCHC 33.8 (32.2-35.5) g/dl RDW Std Deviation 42.5 (35.1-43.9) fL Plt Count 189 (163-337) K/mm3 MPV 10.8 (9.4-12.3) fl Sodium 137 (136-145) mEq/L Potassium 4.4 (3.5-5.1) mEq/L Chloride 102 (98-107) mEq/L Carbon Dioxide 27 (21-32) mEq/L Anion Gap 12.4 (5-15) BUN 21 H (7-18) mg/dL Creatinine 1.1 (0.7-1.3) mg/dL Est Cr Clr Drug Dosing 76.06 mL/min Estimated GFR (MDRD) > 60 (>60) mL/min BUN/Creatinine Ratio 19.1 H (14-18) Glucose 134 H (74-106) mg/dL Calcium 8.3 L (8.5-10.1) mg/dL Total Bilirubin 0.6 (0.2-1.0) mg/dL AST 16 (15-37) U/L ALT 21 (16-63) U/L Alkaline Phosphatase 85 (46-116) U/L Total Protein 6.0 L (6.4-8.2) g/dl Albumin 3.0 L (3.4-5.0) g/dl Globulin 3.0 gm/dL Albumin/Globulin Ratio 1.0 (1-2) Result Diagrams: 04/23/19 06:19 04/23/19 06:19 Consult PN Assessment/Plan POD#: 1 Procedures: Procedures DIAGNOSTIC COLONOSCOPY (11/20/13) DRAIN/INJ JOINT/BURSA W/O US (12/12/18) INJECTION FOR SHOULDER X-RAY (05/29/18) MRI JOINT UPR EXTREM W/DYE (05/29/18) NEEDLE LOCALIZATION BY XRAY (05/29/18) Problem List Initiated/Reviewed/Updated: Yes Plan: Assessment: Acute: Left TKA - POD #1 - Defer Management to Primary Team Post-Operative Care - Patient is clinically and hemodynamically stable - Hgb is at 12.0 - He is drinking and eating well Chronic: HTN, HLD, Hyperglycemia, Hypothyroidism, Diastolic Dysfunction, OA/DJD , Insomnia and Moderate Intellectual Disability, Class I Obesity Plan: From the hospitalist standpoint, patient is doing relatively well. We recommend no recommendations but to continue current treatment and resume home medications. Any changes or further recommendations will be based on the patient 's course. Thank you for the opportunity to participate in the management of this patient. We will follow him along with you. Requesting Provider: Dr. Xiao Date Consult Requested: 04/22/19 Reason for Consult: Post Operative Care Patient History Reviewed: Yes Admission H&P Reviewed: Yes Notified Requestor: Yes Time Spent (in minutes): 20
[2019-04-23] MEDS: Cyclobenzaprine 10 MG Tab PO PRN (20:30)
[2019-04-24] MEDS: Levothyroxine 50 MCG Tab PO SCH (05:02)
[2019-04-24] MEDS: Acetaminophen/oxyCODONE 325-5 MG Tab PO PRN ×3 (05:02→17:43)
--- NOTE | 2019-04-24 07:07 | PCM.CONSN ---
- General Info Date of Service: 04/24/19 Admission Dx/Problem (Free Text): Admission Diagnosis/Problem Admission Diagnosis/Problem Osteoarthritis of knee Subjective Update: Had an uneventful night. His pain is controlled. He has no complaints this morning. Functional Status: Reports: Pain Controlled, Tolerating Diet, Ambulating, Urinating. Denies: New Symptoms - Review of Systems General: Denies: Fever, Chills HEENT: Reports: No Symptoms Pulmonary: Denies: Shortness of Breath Cardiovascular: Denies: Chest Pain, Dyspnea on Exertion, Lightheadedness Gastrointestinal: Denies: Abdominal Pain, Nausea, Vomiting Genitourinary: Reports: No Symptoms Musculoskeletal: Reports: No Symptoms Skin: Reports: No Symptoms Neurological: Denies: Confusion, Difficulty Walking, Weakness, Gait Disturbance Psychiatric: Denies: Depression, Anxiety, Agitation, Hallucinations - Patient Data Vitals - Most Recent: Last Vital Signs Temp 37.1 C 04/24/19 04:35 Pulse 94 04/24/19 04:35 Resp 16 04/24/19 04:35 BP 124/97 H 04/24/19 04:35 Pulse Ox 95 04/24/19 04:35 Weight - Most Recent: 104.4 kg I&O - Last 24 Hours: Intake & Output 04/23/19 04/24/19 04/24/19 22:59 06:59 14:59 Intake Total 1150 850 Output Total 1800 1425 Balance -650 -575 Lab Results Last 24 Hours: Laboratory Results - last 24 hr 04/23/19 Range/Units 06:19 Sodium 137 (136-145) mEq/L Potassium 4.4 (3.5-5.1) mEq/L Chloride 102 (98-107) mEq/L Carbon Dioxide 27 (21-32) mEq/L Anion Gap 12.4 (5-15) BUN 21 H (7-18) mg/dL Creatinine 1.1 (0.7-1.3) mg/dL Est Cr Clr Drug Dosing 76.06 mL/min Estimated GFR (MDRD) > 60 (>60) mL/min BUN/Creatinine Ratio 19.1 H (14-18) Glucose 134 H (74-106) mg/dL Calcium 8.3 L (8.5-10.1) mg/dL Total Bilirubin 0.6 (0.2-1.0) mg/dL AST 16 (15-37) U/L ALT 21 (16-63) U/L Alkaline Phosphatase 85 (46-116) U/L Total Protein 6.0 L (6.4-8.2) g/dl Albumin 3.0 L (3.4-5.0) g/dl Globulin 3.0 gm/dL Albumin/Globulin Ratio 1.0 (1-2) Med Orders - Current: Current Medications Aspirin (Ecotrin) 325 mg PO BID [facility] Last Admin: 04/23/19 20:30 Dose: 325 mg Bisacodyl (Dulcolax) 5 mg PO DAILY PRN PRN Reason: Constipation Calamine/Phenol (Calmoseptine) 0 gm TOP ASDIRECTED PRN PRN Reason: Itching/Rash Cholecalciferol (Vitamin D3) 5,000 unit PO DAILY [facility] Last Admin: 04/23/19 08:11 Dose: 5,000 unit Clotrimazole (Lotrimin Af 1% Crm) 0 gm TOP BID [facility] Last Admin: 04/23/19 20:33 Dose: Not Given Cyclobenzaprine HCl (Flexeril) 10 mg PO BID PRN PRN Reason: Spasms Last Admin: 04/23/19 20:30 Dose: 10 mg Docusate Sodium (Colace) 100 mg PO BID [facility] Last Admin: 04/23/19 20:31 Dose: 100 mg Famotidine (Pepcid) 20 mg PO Q12H [facility] Last Admin: 04/23/19 20:30 Dose: 20 mg Hydromorphone HCl (Dilaudid) 0.2 mg IVPUSH Q2H PRN PRN Reason: Pain (moderate 4-6) Levothyroxine Sodium (Synthroid) 50 mcg PO ACBREAKFAST [facility] Last Admin: 04/24/19 05:02 Dose: 50 mcg Loratadine (Claritin) 10 mg PO DAILY [facility] Last Admin: 04/23/19 08:11 Dose: 10 mg Magnesium Hydroxide (Milk Of Magnesia) 30 ml PO BID PRN PRN Reason: Constipation Metoprolol Succinate (Toprol Xl) 50 mg PO DAILY [facility] Last Admin: 04/23/19 08:13 Dose: 50 mg Multivitamins (Thera) 1 each PO DAILY [facility] Last Admin: 04/23/19 08:10 Dose: 1 each Naloxone HCl (Narcan) 0.1 mg IVPUSH Q5M PRN PRN Reason: Oversedation Ondansetron HCl (Zofran) 4 mg IVPUSH Q6H PRN PRN Reason: Nausea/Vomiting Oxycodone/Acetaminophen (Percocet 325-5 Mg) 1 - 2 tab PO Q4H PRN PRN Reason: Pain Last Admin: 04/24/19 05:02 Dose: 2 tab Camphor/Menthol (Ptom) 0 each TOP TID [facility] Last Admin: 04/23/19 21:25 Dose: Not Given Polyethylene Glycol (Miralax) 17 gm PO Q72H [facility] Last Admin: 04/23/19 08:17 Dose: 17 gm Rosuvastatin Calcium (Crestor) 5 mg PO DAILY [facility] Last Admin: 04/23/19 08:11 Dose: 5 mg Saccharomyces Boulardii (Florastor) 250 mg PO DAILY [facility] Last Admin: 04/23/19 08:11 Dose: 250 mg Senna (Senna) 8.6 mg PO BID PRN PRN Reason: Constipation Discontinued Medications Bupivacaine HCl (Sensorcaine-Mpf 0.25%) Confirm Administered Dose 30 ml .ROUTE .STK-MED ONE Stop: 04/22/19 07:04 Last Admin: 04/22/19 10:07 Dose: 30 ml Cefazolin Sodium (Ancef) Confirm Administered Dose 2 gm .ROUTE .STK-MED ONE Stop: 04/22/19 07:04 Last Admin: 04/22/19 10:03 Dose: 2 gm Cefazolin Sodium (Ancef) Confirm Administered Dose 2 gm .ROUTE .STK-MED ONE Stop: 04/22/19 07:55 Morphine Sulfate 8 mg/Epinephrine HCl 0.3 mg/Cefuroxime Sodium 750 mg/Ketorolac Tromethamine 30 mg/Sodium Chloride 27.9 ml 0 mg .XX ONETIME ONE Stop: 04/22/19 09:01 Last Admin: 04/22/19 10:06 Dose: 788.3 mg Diphenhydramine HCl (Benadryl) 25 mg IVPUSH Q6H PRN PRN Reason: pruritis Stop: 04/22/19 23:00 Epinephrine HCl (Adrenalin) Confirm Administered Dose 1 mg .ROUTE .STK-MED ONE Stop: 04/22/19 07:33 Fentanyl (Sublimaze) 50 mcg IVPUSH Q5M PRN PRN Reason: Pain Stop: 04/22/19 23:00 Lactated Ringer's (Ringers, Lactated) 1,000 mls @ 125 mls/hr IV ASDIRECTED [facility] Stop: 04/22/19 23:00 Last Admin: 04/22/19 07:30 Dose: 125 mls/hr Cefazolin Sodium/Dextrose 2 gm (/ Premix) 50 mls @ 100 mls/hr IV Q8H [facility] Stop: 04/23/19 09:29 Last Admin: 04/23/19 08:10 Dose: 100 mls/hr Lidocaine HCl (Xylocaine-Mpf 1%) Confirm Administered Dose 4 mls @ as directed .ROUTE .STK-MED ONE Stop: 04/22/19 07:54 Lactated Ringer's (Ringers, Lactated) Confirm Administered Dose 1,000 mls @ as directed .ROUTE .STK-MED ONE Stop: 04/22/19 09:19 Iodine (Iodine 2% Mild Tincture) Confirm Administered Dose 30 ml .ROUTE .STK- MED ONE Stop: 04/22/19 07:04 Last Admin: 04/22/19 09:59 Dose: 18 ml Ketamine HCl (Ketalar) Confirm Administered Dose 500 mg .ROUTE .STK-MED ONE Stop: 04/22/19 09:04 Ketorolac Tromethamine (Toradol) 15 mg IVPUSH Q6H PRN PRN Reason: Pain Last Admin: 04/23/19 20:29 Dose: 15 mg Ketorolac Tromethamine (Toradol) 15 mg IVPUSH ONETIME [facility] Stop: 04/22/19 13:00 Lidocaine/Sodium Bicarbonate (Buffered Lidocaine 1% In Ns 8.4%) 0.25 ml IDERM ONETIME PRN PRN Reason: Prior to IV Start Stop: 04/22/19 18:00 Midazolam HCl (Versed 1 Mg/Ml) Confirm Administered Dose 2 mg .ROUTE .STK-MED ONE Stop: 04/22/19 07:53 Non-Formulary Medication (Epinephrine [Epinephrine]) 0.3 mg IM ASDIRECTED PRN PRN Reason: Allergic Reaction Non-Formulary Medication (Methylcellulose) 1,500 mg PO DAILY [facility] Ondansetron HCl (Zofran) Confirm Administered Dose 4 mg .ROUTE .STK-MED ONE Stop: 04/22/19 07:57 Ondansetron HCl (Zofran) 4 mg IVPUSH ONETIME PRN PRN Reason: Nausea/Vomiting Stop: 04/22/19 23:00 Propofol (Diprivan 20 Ml) Confirm Administered Dose 400 mg .ROUTE .STK-MED ONE Stop: 04/22/19 07:53 Propofol (Diprivan 20 Ml) Confirm Administered Dose 200 mg .ROUTE .STK-MED ONE Stop: 04/22/19 09:41 Propofol (Diprivan 20 Ml) Confirm Administered Dose 200 mg .ROUTE .STK-MED ONE Stop: 04/22/19 10:23 Ropivacaine (Naropin 0.5%) Confirm Administered Dose 30 ml .ROUTE .STK-MED ONE Stop: 04/22/19 07:33 Sodium Chloride (Saline Flush) 10 ml FLUSH ASDIRECTED PRN PRN Reason: Keep Vein Open Stop: 04/22/19 18:00 Tranexamic Acid (Cyklokapron) Confirm Administered Dose 1,000 mg .ROUTE .STK- MED ONE Stop: 04/22/19 07:03 Last Admin: 04/22/19 10:14 Dose: 1,000 mg Vancomycin HCl (Vancomycin) Confirm Administered Dose 1 gm .ROUTE .STK-MED ONE Stop: 04/22/19 07:03 Last Admin: 04/22/19 10:15 Dose: 1 gm - Exam General: Alert, Oriented, Cooperative, No Acute Distress HEENT: Pupils Equal, Pupils Reactive, EOMI, Mucous Membr. Moist/[place] Neck: Supple Lungs: Clear to Auscultation, Normal Respiratory Effort Cardiovascular: Regular Rate, Regular Rhythm GI/Abdominal Exam: Normal Bowel Sounds, Soft, Non-Tender, No Organomegaly, No Distention, No Abnormal Bruit (Male) Exam: Deferred Back Exam: Normal Inspection, Decreased Range of Motion Extremities: Normal Inspection, Normal Range of Motion, Non-Tender, No Pedal Edema, Normal Capillary Refill Peripheral Pulses: 2+: Dorsalis Pedis (L), Dorsalis Pedis (R) Skin: Warm, Dry, Intact Neurological: No New Focal Deficit. No: Normal Gait Psy/Mental Status: Alert, Normal Affect, Normal Mood Consult PN Assessment/Plan POD#: 2 Procedures: Procedures DIAGNOSTIC COLONOSCOPY (11/20/13) DRAIN/INJ JOINT/BURSA W/O US (12/12/18) INJECTION FOR SHOULDER X-RAY (05/29/18) MRI JOINT UPR EXTREM W/DYE (05/29/18) NEEDLE LOCALIZATION BY XRAY (05/29/18) Problem List Initiated/Reviewed/Updated: Yes Plan: Assessment: Acute: Left TKA - POD #2 - Defer Management to Primary Team Post-Operative Care - Patient remains clinically and hemodynamically stable - Hgb is at 12.0 - He is drinking and eating well Chronic: HTN, HLD, Hyperglycemia, Hypothyroidism, Diastolic Dysfunction, OA/DJD , Insomnia and Moderate Intellectual Disability, Class I Obesity Plan: From the hospitalist standpoint, patient remains relatively well. We have no additional recommendations but to continue current treatment. We are now signing off his case. Again, thank you for the opportunity to participate in the management of this patient. Please feel free to give us a call for further questions or concerns.
[2019-04-24] MEDS: Aspirin 325 MG Tab.EC PO SCH ×2 (08:12→20:58)
[2019-04-24] MEDS: Metoprolol Succinate 50 MG Tab.ER PO SCH (08:12)
[2019-04-24] MEDS: Multivitamins,Therapeutic Tab PO SCH (08:12)
[2019-04-24] MEDS: Famotidine 20 MG Tab PO SCH ×2 (08:14→20:59)
[2019-04-24] MEDS: Rosuvastatin 10 MG Tab PO SCH (08:14)
[2019-04-24] MEDS: Docusate Sodium 100 MG Cap PO SCH ×2 (08:14→20:58)
[2019-04-24] MEDS: Saccharomyces Boulardii (Probiotic) 250 MG Cap PO SCH (08:14)
[2019-04-24] MEDS: Loratadine 10 MG Tab PO SCH (08:14)
[2019-04-24] MEDS: Cholecalciferol (Vitamin D3) 5,000 UNIT Tab PO SCH (08:15)
[2019-04-24] MEDS: MENTHOL TOP SCH ×3 (08:15→21:10)
[2019-04-24] MEDS: CAMPHOR TOP SCH ×3 (08:15→21:10)
[2019-04-24] MEDS: Clotrimazole 1% Crm 30 GM Tube TOP SCH ×2 (08:20→20:59)
--- NOTE | 2019-04-24 09:33 | PCM.SURGPN ---
- General Info Date of Service: 04/24/19 POD#: 2 Functional Status: Reports: Pain Controlled, Tolerating Diet, Ambulating, Urinating, Incentive Spirometry, Other (The pt states his pain is better controlled today.) - Patient Data Vitals - Most Recent: Last Vital Signs Temp 98.2 F 04/24/19 08:13 Pulse 92 04/24/19 08:13 Resp 14 04/24/19 08:13 BP 153/75 H 04/24/19 08:13 Pulse Ox 93 L 04/24/19 08:13 Weight - Most Recent: 230 lb 2.6 oz I&O - Last 24 Hours: Intake & Output 04/23/19 04/24/19 04/24/19 22:59 06:59 14:59 Intake Total 1150 850 Output Total 1800 1425 Balance -650 -575 Med Orders - Current: Current Medications Aspirin (Ecotrin) 325 mg PO BID [facility] Last Admin: 04/24/19 08:12 Dose: 325 mg Bisacodyl (Dulcolax) 5 mg PO DAILY PRN PRN Reason: Constipation Calamine/Phenol (Calmoseptine) 0 gm TOP ASDIRECTED PRN PRN Reason: Itching/Rash Cholecalciferol (Vitamin D3) 5,000 unit PO DAILY [facility] Last Admin: 04/24/19 08:15 Dose: 5,000 unit Clotrimazole (Lotrimin Af 1% Crm) 0 gm TOP BID [facility] Last Admin: 04/24/19 08:20 Dose: Not Given Cyclobenzaprine HCl (Flexeril) 10 mg PO BID PRN PRN Reason: Spasms Last Admin: 04/23/19 20:30 Dose: 10 mg Docusate Sodium (Colace) 100 mg PO BID [facility] Last Admin: 04/24/19 08:14 Dose: 100 mg Famotidine (Pepcid) 20 mg PO Q12H [facility] Last Admin: 04/24/19 08:14 Dose: 20 mg Hydromorphone HCl (Dilaudid) 0.2 mg IVPUSH Q2H PRN PRN Reason: Pain (moderate 4-6) Levothyroxine Sodium (Synthroid) 50 mcg PO ACBREAKFAST [facility] Last Admin: 04/24/19 05:02 Dose: 50 mcg Loratadine (Claritin) 10 mg PO DAILY [facility] Last Admin: 04/24/19 08:14 Dose: 10 mg Magnesium Hydroxide (Milk Of Magnesia) 30 ml PO BID PRN PRN Reason: Constipation Metoprolol Succinate (Toprol Xl) 50 mg PO DAILY [facility] Last Admin: 04/24/19 08:12 Dose: 50 mg Multivitamins (Thera) 1 each PO DAILY [facility] Last Admin: 04/24/19 08:12 Dose: 1 each Naloxone HCl (Narcan) 0.1 mg IVPUSH Q5M PRN PRN Reason: Oversedation Ondansetron HCl (Zofran) 4 mg IVPUSH Q6H PRN PRN Reason: Nausea/Vomiting Oxycodone/Acetaminophen (Percocet 325-5 Mg) 1 - 2 tab PO Q4H PRN PRN Reason: Pain Last Admin: 04/24/19 05:02 Dose: 2 tab Camphor/Menthol (Ptom) 0 each TOP TID [facility] Last Admin: 04/24/19 08:15 Dose: Not Given Polyethylene Glycol (Miralax) 17 gm PO Q72H [facility] Last Admin: 04/23/19 08:17 Dose: 17 gm Rosuvastatin Calcium (Crestor) 5 mg PO DAILY [facility] Last Admin: 04/24/19 08:14 Dose: 5 mg Saccharomyces Boulardii (Florastor) 250 mg PO DAILY [facility] Last Admin: 04/24/19 08:14 Dose: 250 mg Senna (Senna) 8.6 mg PO BID PRN PRN Reason: Constipation Discontinued Medications Bupivacaine HCl (Sensorcaine-Mpf 0.25%) Confirm Administered Dose 30 ml .ROUTE .STK-MED ONE Stop: 04/22/19 07:04 Last Admin: 04/22/19 10:07 Dose: 30 ml Cefazolin Sodium (Ancef) Confirm Administered Dose 2 gm .ROUTE .STK-MED ONE Stop: 04/22/19 07:04 Last Admin: 04/22/19 10:03 Dose: 2 gm Cefazolin Sodium (Ancef) Confirm Administered Dose 2 gm .ROUTE .STK-MED ONE Stop: 04/22/19 07:55 Morphine Sulfate 8 mg/Epinephrine HCl 0.3 mg/Cefuroxime Sodium 750 mg/Ketorolac Tromethamine 30 mg/Sodium Chloride 27.9 ml 0 mg .XX ONETIME ONE Stop: 04/22/19 09:01 Last Admin: 04/22/19 10:06 Dose: 788.3 mg Diphenhydramine HCl (Benadryl) 25 mg IVPUSH Q6H PRN PRN Reason: pruritis Stop: 04/22/19 23:00 Epinephrine HCl (Adrenalin) Confirm Administered Dose 1 mg .ROUTE .STK-MED ONE Stop: 04/22/19 07:33 Fentanyl (Sublimaze) 50 mcg IVPUSH Q5M PRN PRN Reason: Pain Stop: 04/22/19 23:00 Lactated Ringer's (Ringers, Lactated) 1,000 mls @ 125 mls/hr IV ASDIRECTED [facility] Stop: 04/22/19 23:00 Last Admin: 04/22/19 07:30 Dose: 125 mls/hr Cefazolin Sodium/Dextrose 2 gm (/ Premix) 50 mls @ 100 mls/hr IV Q8H [facility] Stop: 04/23/19 09:29 Last Admin: 04/23/19 08:10 Dose: 100 mls/hr Lidocaine HCl (Xylocaine-Mpf 1%) Confirm Administered Dose 4 mls @ as directed .ROUTE .STK-MED ONE Stop: 04/22/19 07:54 Lactated Ringer's (Ringers, Lactated) Confirm Administered Dose 1,000 mls @ as directed .ROUTE .STK-MED ONE Stop: 04/22/19 09:19 Iodine (Iodine 2% Mild Tincture) Confirm Administered Dose 30 ml .ROUTE .STK- MED ONE Stop: 04/22/19 07:04 Last Admin: 04/22/19 09:59 Dose: 18 ml Ketamine HCl (Ketalar) Confirm Administered Dose 500 mg .ROUTE .STK-MED ONE Stop: 04/22/19 09:04 Ketorolac Tromethamine (Toradol) 15 mg IVPUSH Q6H PRN PRN Reason: Pain Last Admin: 04/23/19 20:29 Dose: 15 mg Ketorolac Tromethamine (Toradol) 15 mg IVPUSH ONETIME [facility] Stop: 04/22/19 13:00 Lidocaine/Sodium Bicarbonate (Buffered Lidocaine 1% In Ns 8.4%) 0.25 ml IDERM ONETIME PRN PRN Reason: Prior to IV Start Stop: 04/22/19 18:00 Midazolam HCl (Versed 1 Mg/Ml) Confirm Administered Dose 2 mg .ROUTE .STK-MED ONE Stop: 04/22/19 07:53 Non-Formulary Medication (Epinephrine [Epinephrine]) 0.3 mg IM ASDIRECTED PRN PRN Reason: Allergic Reaction Non-Formulary Medication (Methylcellulose) 1,500 mg PO DAILY [facility] Ondansetron HCl (Zofran) Confirm Administered Dose 4 mg .ROUTE .STK-MED ONE Stop: 04/22/19 07:57 Ondansetron HCl (Zofran) 4 mg IVPUSH ONETIME PRN PRN Reason: Nausea/Vomiting Stop: 04/22/19 23:00 Propofol (Diprivan 20 Ml) Confirm Administered Dose 400 mg .ROUTE .STK-MED ONE Stop: 04/22/19 07:53 Propofol (Diprivan 20 Ml) Confirm Administered Dose 200 mg .ROUTE .STK-MED ONE Stop: 04/22/19 09:41 Propofol (Diprivan 20 Ml) Confirm Administered Dose 200 mg .ROUTE .STK-MED ONE Stop: 04/22/19 10:23 Ropivacaine (Naropin 0.5%) Confirm Administered Dose 30 ml .ROUTE .STK-MED ONE Stop: 04/22/19 07:33 Sodium Chloride (Saline Flush) 10 ml FLUSH ASDIRECTED PRN PRN Reason: Keep Vein Open Stop: 04/22/19 18:00 Tranexamic Acid (Cyklokapron) Confirm Administered Dose 1,000 mg .ROUTE .STK- MED ONE Stop: 04/22/19 07:03 Last Admin: 04/22/19 10:14 Dose: 1,000 mg Vancomycin HCl (Vancomycin) Confirm Administered Dose 1 gm .ROUTE .STK-MED ONE Stop: 04/22/19 07:03 Last Admin: 04/22/19 10:15 Dose: 1 gm - Exam Wound/Incisions: Dressing Dry and Intact General: Alert, Cooperative, No Acute Distress Lungs: Normal Respiratory Effort Extremities: Other (NVS intact for BLE. Coty's negative BLE. ) - Problem List Review Problem List Initiated/Reviewed/Updated: Yes - My Orders Last 24 Hours: Active Orders 24 hr Category Date Time Status Patient Status [ADT] Routine ADT 04/23/19 16:18 Active Aspirin [Ecotrin] Med 04/23/19 09:00 Active 325 mg PO BID Cholecalciferol (Vitamin D3) [Vitamin D3] Med 04/23/19 09:00 Active 5,000 unit PO DAILY Clotrimazole [Lotrimin AF 1% Crm] Med 04/23/19 09:00 Active 0 gm TOP BID Loratadine [Claritin] Med 04/23/19 09:00 Active 10 mg PO DAILY Metoprolol Succinate [Toprol XL] Med 04/23/19 09:00 Active 50 mg PO DAILY Multivitamins,Therapeutic [Thera] Med 04/23/19 09:00 Active 1 each PO DAILY Polyethylene Glycol 3350 [MiraLAX] Med 04/23/19 09:00 Active 17 gm PO Q72H Rosuvastatin [Crestor] Med 04/23/19 09:00 Active 5 mg PO DAILY Saccharomyces Boulardii [Florastor] Med 04/23/19 09:00 Active 250 mg PO DAILY Medication Orders Aspirin (Ecotrin) 325 mg PO BID [facility] Last Admin: 04/24/19 08:12 Dose: 325 mg Admin: 04/23/19 20:30 Dose: 325 mg Admin: 04/23/19 08:11 Dose: 325 mg Bisacodyl (Dulcolax) 5 mg PO DAILY PRN PRN Reason: Constipation Calamine/Phenol (Calmoseptine) 0 gm TOP ASDIRECTED PRN PRN Reason: Itching/Rash Cholecalciferol (Vitamin D3) 5,000 unit PO DAILY [facility] Last Admin: 04/24/19 08:15 Dose: 5,000 unit Admin: 04/23/19 08:11 Dose: 5,000 unit Clotrimazole (Lotrimin Af 1% Crm) 0 gm TOP BID [facility] Last Admin: 04/24/19 08:20 Dose: Not Given Admin: 04/23/19 20:33 Dose: Not Given Admin: 04/23/19 08:14 Dose: Not Given Cyclobenzaprine HCl (Flexeril) 10 mg PO BID PRN PRN Reason: Spasms Last Admin: 04/23/19 20:30 Dose: 10 mg Docusate Sodium (Colace) 100 mg PO BID [facility] Last Admin: 04/24/19 08:14 Dose: 100 mg Admin: 04/23/19 20:31 Dose: 100 mg Admin: 04/23/19 08:10 Dose: 100 mg Admin: 04/22/19 21:08 Dose: 100 mg Famotidine (Pepcid) 20 mg PO Q12H [facility] Last Admin: 04/24/19 08:14 Dose: 20 mg Admin: 04/23/19 20:30 Dose: 20 mg Admin: 04/23/19 08:11 Dose: 20 mg Admin: 04/22/19 21:08 Dose: 20 mg Hydromorphone HCl (Dilaudid) 0.2 mg IVPUSH Q2H PRN PRN Reason: Pain (moderate 4-6) Levothyroxine Sodium (Synthroid) 50 mcg PO ACBREAKFAST [facility] Last Admin: 04/24/19 05:02 Dose: 50 mcg Admin: 04/23/19 06:54 Dose: 50 mcg Loratadine (Claritin) 10 mg PO DAILY [facility] Last Admin: 04/24/19 08:14 Dose: 10 mg Admin: 04/23/19 08:11 Dose: 10 mg Magnesium Hydroxide (Milk Of Magnesia) 30 ml PO BID PRN PRN Reason: Constipation Metoprolol Succinate (Toprol Xl) 50 mg PO DAILY [facility] Last Admin: 04/24/19 08:12 Dose: 50 mg Admin: 04/23/19 08:13 Dose: 50 mg Multivitamins (Thera) 1 each PO DAILY [facility] Last Admin: 04/24/19 08:12 Dose: 1 each Admin: 04/23/19 08:10 Dose: 1 each Naloxone HCl (Narcan) 0.1 mg IVPUSH Q5M PRN PRN Reason: Oversedation Ondansetron HCl (Zofran) 4 mg IVPUSH Q6H PRN PRN Reason: Nausea/Vomiting Oxycodone/Acetaminophen (Percocet 325-5 Mg) 1 - 2 tab PO Q4H PRN PRN Reason: Pain Last Admin: 04/24/19 05:02 Dose: 2 tab Admin: 04/23/19 19:01 Dose: 2 tab Admin: 04/23/19 12:49 Dose: 2 tab Admin: 04/23/19 08:08 Dose: 2 tab Admin: 04/22/19 19:50 Dose: 2 tab Camphor/Menthol (Ptom) 0 each TOP TID [facility] Last Admin: 04/24/19 08:15 Dose: Admin: 04/23/19 21:25 Dose: Admin: 04/23/19 14:29 Dose: Admin: 04/23/19 08:14 Dose: Not Given Admin: 04/22/19 21:12 Dose: Admin: 04/22/19 16:07 Dose: Polyethylene Glycol (Miralax) 17 gm PO Q72H [facility] Last Admin: 04/23/19 08:17 Dose: 17 gm Rosuvastatin Calcium (Crestor) 5 mg PO DAILY [facility] Last Admin: 04/24/19 08:14 Dose: 5 mg Admin: 04/23/19 08:11 Dose: 5 mg Saccharomyces Boulardii (Florastor) 250 mg PO DAILY [facility] Last Admin: 04/24/19 08:14 Dose: 250 mg Admin: 04/23/19 08:11 Dose: 250 mg Senna (Senna) 8.6 mg PO BID PRN PRN Reason: Constipation - Assessment Assessment (Free Text/Narrative):: POD#2 - left TKA - Plan Plan (Free Text/Narrative):: 1. 325mg ASA PO BID, frequent mobility, TEDs, SCDs. 2. Discharge to [facility] for continued [facility]. It is suspected the pt will require less than 30 [facility]. 3. Continue with PT and OT. WBAT. 4. Pain controlled with current regimen. The pt's case was discussed with Dr. Xiao.
[2019-04-24] MEDS: Cyclobenzaprine 10 MG Tab PO PRN (15:08)
[2019-04-25] MEDS: Acetaminophen/oxyCODONE 325-5 MG Tab PO PRN ×2 (01:40→12:30)
[2019-04-25] MEDS: Levothyroxine 50 MCG Tab PO SCH (05:27)
[2019-04-25] MEDS ORDERED: Bisacodyl 10 MG Supp RECTAL ONE ×2 (07:00→10:15)
--- NOTE | 2019-04-25 07:41 | PCM.SURGPN ---
- General Info Date of Service: 04/25/19 POD#: 3 Functional Status: Reports: Pain Controlled, Tolerating Diet, Ambulating, Urinating, Incentive Spirometry, Other (The pt states he is doing well.) - Patient Data Vitals - Most Recent: Last Vital Signs Temp 99.1 F 04/25/19 01:41 Pulse 94 04/25/19 01:41 Resp 18 04/25/19 01:41 BP 137/80 04/25/19 01:41 Pulse Ox 92 L 04/25/19 01:41 Weight - Most Recent: 230 lb 2.6 oz I&O - Last 24 Hours: Intake & Output 04/24/19 04/25/19 04/25/19 22:59 06:59 14:59 Intake Total 1580 350 Output Total 1175 1425 Balance 405 -1075 Lab Results Last 24 Hrs: Laboratory Results - last 24 hr 04/25/19 04/25/19 Range/Units 05:45 05:55 WBC 8.57 (4.23-9.07) K/mm3 RBC 3.33 L (4.63-6.08) M/mm3 Hgb 10.6 L (13.7-17.5) gm/dl Hct 31.5 L (40.1-51.0) % MCV 94.6 H (79.0-92.2) fl MCH 31.8 (25.7-32.2) pg MCHC 33.7 (32.2-35.5) g/dl RDW Std Deviation 41.8 (35.1-43.9) fL Plt Count 170 (163-337) K/mm3 MPV 10.7 (9.4-12.3) fl Neut % (Auto) 62.1 (34.0-67.9) % Lymph % (Auto) 23.1 (21.8-53.1) % [place] % (Auto) 10.5 (5.3-12.2) % Eos % (Auto) 3.5 (0.8-7.0) Baso % (Auto) 0.4 (0.1-1.2) % Neut # (Auto) 5.33 (1.78-5.38) K/mm3 Lymph # (Auto) 1.98 (1.32-3.57) K/mm3 [place] # (Auto) 0.90 H (0.30-0.82) K/mm3 Eos # (Auto) 0.30 (0.04-0.54) K/mm3 Baso # (Auto) 0.03 (0.01-0.08) K/mm3 Sodium 139 (136-145) mEq/L Potassium 4.0 (3.5-5.1) mEq/L Chloride 102 (98-107) mEq/L Carbon Dioxide 27 (21-32) mEq/L Anion Gap 14.0 (5-15) BUN 24 H (7-18) mg/dL Creatinine 1.0 (0.7-1.3) mg/dL Est Cr Clr Drug Dosing 83.67 mL/min Estimated GFR (MDRD) > 60 (>60) mL/min BUN/Creatinine Ratio 24.0 H (14-18) Glucose 129 H (74-106) mg/dL Calcium 8.4 L (8.5-10.1) mg/dL Magnesium 2.1 (1.8-2.4) mg/dl Med Orders - Current: Current Medications Aspirin (Ecotrin) 325 mg PO BID [facility] Last Admin: 04/24/19 20:58 Dose: 325 mg Bisacodyl (Dulcolax) 5 mg PO DAILY PRN PRN Reason: Constipation Calamine/Phenol (Calmoseptine) 0 gm TOP ASDIRECTED PRN PRN Reason: Itching/Rash Cholecalciferol (Vitamin D3) 5,000 unit PO DAILY [facility] Last Admin: 04/24/19 08:15 Dose: 5,000 unit Clotrimazole (Lotrimin Af 1% Crm) 0 gm TOP BID [facility] Last Admin: 04/24/19 20:59 Dose: Not Given Cyclobenzaprine HCl (Flexeril) 10 mg PO BID PRN PRN Reason: Spasms Last Admin: 04/24/19 15:08 Dose: 10 mg Docusate Sodium (Colace) 100 mg PO BID [facility] Last Admin: 04/24/19 20:58 Dose: 100 mg Famotidine (Pepcid) 20 mg PO Q12H [facility] Last Admin: 04/24/19 20:59 Dose: 20 mg Hydromorphone HCl (Dilaudid) 0.2 mg IVPUSH Q2H PRN PRN Reason: Pain (moderate 4-6) Levothyroxine Sodium (Synthroid) 50 mcg PO ACBREAKFAST [facility] Last Admin: 04/25/19 05:27 Dose: 50 mcg Loratadine (Claritin) 10 mg PO DAILY [facility] Last Admin: 04/24/19 08:14 Dose: 10 mg Magnesium Hydroxide (Milk Of Magnesia) 30 ml PO BID PRN PRN Reason: Constipation Last Admin: 04/24/19 20:59 Dose: 30 ml Metoprolol Succinate (Toprol Xl) 50 mg PO DAILY [facility] Last Admin: 04/24/19 08:12 Dose: 50 mg Multivitamins (Thera) 1 each PO DAILY [facility] Last Admin: 04/24/19 08:12 Dose: 1 each Naloxone HCl (Narcan) 0.1 mg IVPUSH Q5M PRN PRN Reason: Oversedation Ondansetron HCl (Zofran) 4 mg IVPUSH Q6H PRN PRN Reason: Nausea/Vomiting Oxycodone/Acetaminophen (Percocet 325-5 Mg) 1 - 2 tab PO Q4H PRN PRN Reason: Pain Last Admin: 04/25/19 01:40 Dose: 2 tab Camphor/Menthol (Ptom) 0 each TOP TID [facility] Last Admin: 04/24/19 21:10 Dose: Not Given Polyethylene Glycol (Miralax) 17 gm PO Q72H [facility] Last Admin: 04/23/19 08:17 Dose: 17 gm Rosuvastatin Calcium (Crestor) 5 mg PO DAILY [facility] Last Admin: 04/24/19 08:14 Dose: 5 mg Saccharomyces Boulardii (Florastor) 250 mg PO DAILY [facility] Last Admin: 04/24/19 08:14 Dose: 250 mg Senna (Senna) 8.6 mg PO BID PRN PRN Reason: Constipation Discontinued Medications Bisacodyl (Dulcolax) 10 mg RECTAL ONETIME ONE Stop: 04/25/19 07:01 Bupivacaine HCl (Sensorcaine-Mpf 0.25%) Confirm Administered Dose 30 ml .ROUTE .STK-MED ONE Stop: 04/22/19 07:04 Last Admin: 04/22/19 10:07 Dose: 30 ml Cefazolin Sodium (Ancef) Confirm Administered Dose 2 gm .ROUTE .STK-MED ONE Stop: 04/22/19 07:04 Last Admin: 04/22/19 10:03 Dose: 2 gm Cefazolin Sodium (Ancef) Confirm Administered Dose 2 gm .ROUTE .STK-MED ONE Stop: 04/22/19 07:55 Morphine Sulfate 8 mg/Epinephrine HCl 0.3 mg/Cefuroxime Sodium 750 mg/Ketorolac Tromethamine 30 mg/Sodium Chloride 27.9 ml 0 mg .XX ONETIME ONE Stop: 04/22/19 09:01 Last Admin: 04/22/19 10:06 Dose: 788.3 mg Diphenhydramine HCl (Benadryl) 25 mg IVPUSH Q6H PRN PRN Reason: pruritis Stop: 04/22/19 23:00 Epinephrine HCl (Adrenalin) Confirm Administered Dose 1 mg .ROUTE .STK-MED ONE Stop: 04/22/19 07:33 Fentanyl (Sublimaze) 50 mcg IVPUSH Q5M PRN PRN Reason: Pain Stop: 04/22/19 23:00 Lactated Ringer's (Ringers, Lactated) 1,000 mls @ 125 mls/hr IV ASDIRECTED [facility] Stop: 04/22/19 23:00 Last Admin: 04/22/19 07:30 Dose: 125 mls/hr Cefazolin Sodium/Dextrose 2 gm (/ Premix) 50 mls @ 100 mls/hr IV Q8H [facility] Stop: 04/23/19 09:29 Last Admin: 04/23/19 08:10 Dose: 100 mls/hr Lidocaine HCl (Xylocaine-Mpf 1%) Confirm Administered Dose 4 mls @ as directed .ROUTE .STK-MED ONE Stop: 04/22/19 07:54 Lactated Ringer's (Ringers, Lactated) Confirm Administered Dose 1,000 mls @ as directed .ROUTE .STK-MED ONE Stop: 04/22/19 09:19 Iodine (Iodine 2% Mild Tincture) Confirm Administered Dose 30 ml .ROUTE .STK- MED ONE Stop: 04/22/19 07:04 Last Admin: 04/22/19 09:59 Dose: 18 ml Ketamine HCl (Ketalar) Confirm Administered Dose 500 mg .ROUTE .STK-MED ONE Stop: 04/22/19 09:04 Ketorolac Tromethamine (Toradol) 15 mg IVPUSH Q6H PRN PRN Reason: Pain Last Admin: 04/23/19 20:29 Dose: 15 mg Ketorolac Tromethamine (Toradol) 15 mg IVPUSH ONETIME [facility] Stop: 04/22/19 13:00 Lidocaine/Sodium Bicarbonate (Buffered Lidocaine 1% In Ns 8.4%) 0.25 ml IDERM ONETIME PRN PRN Reason: Prior to IV Start Stop: 04/22/19 18:00 Midazolam HCl (Versed 1 Mg/Ml) Confirm Administered Dose 2 mg .ROUTE .STK-MED ONE Stop: 04/22/19 07:53 Non-Formulary Medication (Epinephrine [Epinephrine]) 0.3 mg IM ASDIRECTED PRN PRN Reason: Allergic Reaction Non-Formulary Medication (Methylcellulose) 1,500 mg PO DAILY [facility] Ondansetron HCl (Zofran) Confirm Administered Dose 4 mg .ROUTE .STK-MED ONE Stop: 04/22/19 07:57 Ondansetron HCl (Zofran) 4 mg IVPUSH ONETIME PRN PRN Reason: Nausea/Vomiting Stop: 04/22/19 23:00 Propofol (Diprivan 20 Ml) Confirm Administered Dose 400 mg .ROUTE .STK-MED ONE Stop: 04/22/19 07:53 Propofol (Diprivan 20 Ml) Confirm Administered Dose 200 mg .ROUTE .STK-MED ONE Stop: 04/22/19 09:41 Propofol (Diprivan 20 Ml) Confirm Administered Dose 200 mg .ROUTE .STK-MED ONE Stop: 04/22/19 10:23 Ropivacaine (Naropin 0.5%) Confirm Administered Dose 30 ml .ROUTE .STK-MED ONE Stop: 04/22/19 07:33 Sodium Chloride (Saline Flush) 10 ml FLUSH ASDIRECTED PRN PRN Reason: Keep Vein Open Stop: 04/22/19 18:00 Tranexamic Acid (Cyklokapron) Confirm Administered Dose 1,000 mg .ROUTE .STK- MED ONE Stop: 04/22/19 07:03 Last Admin: 04/22/19 10:14 Dose: 1,000 mg Vancomycin HCl (Vancomycin) Confirm Administered Dose 1 gm .ROUTE .STK-MED ONE Stop: 04/22/19 07:03 Last Admin: 04/22/19 10:15 Dose: 1 gm - Exam Wound/Incisions: Dressing Dry and Intact General: Alert, Cooperative, No Acute Distress Lungs: Normal Respiratory Effort Extremities: Other (NVS intact for LLE. Coty's negative. ) - Problem List Review Problem List Initiated/Reviewed/Updated: Yes - My Orders Last 24 Hours: Active Orders 24 hr Category Date Time Status Ready for Discharge [RC] PER UNIT ROUTINE Care 04/25/19 07:35 Ordered BMP [BASIC METABOLIC PANEL,BMP] [CHEM] AM Lab 04/26/19 05:11 Ordered BMP [BASIC METABOLIC PANEL,BMP] [CHEM] AM Lab 04/27/19 05:11 Ordered BMP [BASIC METABOLIC PANEL,BMP] [CHEM] AM Lab 04/28/19 05:11 Ordered BMP [BASIC METABOLIC PANEL,BMP] [CHEM] AM Lab 04/29/19 05:11 Ordered CBC WITH AUTO DIFF [HEME] AM Lab 04/26/19 05:11 Ordered CBC WITH AUTO DIFF [HEME] AM Lab 04/27/19 05:11 Ordered MG [MAGNESIUM] [CHEM] AM Lab 04/26/19 05:11 Ordered MG [MAGNESIUM] [CHEM] AM Lab 04/27/19 05:11 Ordered MG [MAGNESIUM] [CHEM] AM Lab 04/28/19 05:11 Ordered Medication Orders Aspirin (Ecotrin) 325 mg PO BID [facility] Last Admin: 04/24/19 20:58 Dose: 325 mg Admin: 04/24/19 08:12 Dose: 325 mg Admin: 04/23/19 20:30 Dose: 325 mg Admin: 04/23/19 08:11 Dose: 325 mg Bisacodyl (Dulcolax) 5 mg PO DAILY PRN PRN Reason: Constipation Calamine/Phenol (Calmoseptine) 0 gm TOP ASDIRECTED PRN PRN Reason: Itching/Rash Cholecalciferol (Vitamin D3) 5,000 unit PO DAILY [facility] Last Admin: 04/24/19 08:15 Dose: 5,000 unit Admin: 04/23/19 08:11 Dose: 5,000 unit Clotrimazole (Lotrimin Af 1% Crm) 0 gm TOP BID [facility] Last Admin: 04/24/19 20:59 Dose: Not Given Admin: 04/24/19 08:20 Dose: Not Given Admin: 04/23/19 20:33 Dose: Not Given Admin: 04/23/19 08:14 Dose: Not Given Cyclobenzaprine HCl (Flexeril) 10 mg PO BID PRN PRN Reason: Spasms Last Admin: 04/24/19 15:08 Dose: 10 mg Admin: 04/23/19 20:30 Dose: 10 mg Docusate Sodium (Colace) 100 mg PO BID [facility] Last Admin: 04/24/19 20:58 Dose: 100 mg Admin: 04/24/19 08:14 Dose: 100 mg Admin: 04/23/19 20:31 Dose: 100 mg Admin: 04/23/19 08:10 Dose: 100 mg Admin: 04/22/19 21:08 Dose: 100 mg Famotidine (Pepcid) 20 mg PO Q12H [facility] Last Admin: 04/24/19 20:59 Dose: 20 mg Admin: 04/24/19 08:14 Dose: 20 mg Admin: 04/23/19 20:30 Dose: 20 mg Admin: 04/23/19 08:11 Dose: 20 mg Admin: 04/22/19 21:08 Dose: 20 mg Hydromorphone HCl (Dilaudid) 0.2 mg IVPUSH Q2H PRN PRN Reason: Pain (moderate 4-6) Levothyroxine Sodium (Synthroid) 50 mcg PO ACBREAKFAST [facility] Last Admin: 04/25/19 05:27 Dose: 50 mcg Admin: 04/24/19 05:02 Dose: 50 mcg Admin: 04/23/19 06:54 Dose: 50 mcg Loratadine (Claritin) 10 mg PO DAILY [facility] Last Admin: 04/24/19 08:14 Dose: 10 mg Admin: 04/23/19 08:11 Dose: 10 mg Magnesium Hydroxide (Milk Of Magnesia) 30 ml PO BID PRN PRN Reason: Constipation Last Admin: 04/24/19 20:59 Dose: 30 ml Metoprolol Succinate (Toprol Xl) 50 mg PO DAILY [facility] Last Admin: 04/24/19 08:12 Dose: 50 mg Admin: 04/23/19 08:13 Dose: 50 mg Multivitamins (Thera) 1 each PO DAILY [facility] Last Admin: 04/24/19 08:12 Dose: 1 each Admin: 04/23/19 08:10 Dose: 1 each Naloxone HCl (Narcan) 0.1 mg IVPUSH Q5M PRN PRN Reason: Oversedation Ondansetron HCl (Zofran) 4 mg IVPUSH Q6H PRN PRN Reason: Nausea/Vomiting Oxycodone/Acetaminophen (Percocet 325-5 Mg) 1 - 2 tab PO Q4H PRN PRN Reason: Pain Last Admin: 04/25/19 01:40 Dose: 2 tab Admin: 04/24/19 17:43 Dose: 2 tab Admin: 04/24/19 12:51 Dose: 2 tab Admin: 04/24/19 05:02 Dose: 2 tab Admin: 04/23/19 19:01 Dose: 2 tab Admin: 04/23/19 12:49 Dose: 2 tab Admin: 04/23/19 08:08 Dose: 2 tab Admin: 04/22/19 19:50 Dose: 2 tab Camphor/Menthol (Ptom) 0 each TOP TID [facility] Last Admin: 04/24/19 21:10 Dose: Admin: 04/24/19 15:10 Dose: Admin: 04/24/19 08:15 Dose: Admin: 04/23/19 21:25 Dose: Admin: 04/23/19 14:29 Dose: Admin: 04/23/19 08:14 Dose: Not Given Admin: 04/22/19 21:12 Dose: Admin: 04/22/19 16:07 Dose: Polyethylene Glycol (Miralax) 17 gm PO Q72H [facility] Last Admin: 04/23/19 08:17 Dose: 17 gm Rosuvastatin Calcium (Crestor) 5 mg PO DAILY [facility] Last Admin: 04/24/19 08:14 Dose: 5 mg Admin: 04/23/19 08:11 Dose: 5 mg Saccharomyces Boulardii (Florastor) 250 mg PO DAILY [facility] Last Admin: 04/24/19 08:14 Dose: 250 mg Admin: 04/23/19 08:11 Dose: 250 mg Senna (Senna) 8.6 mg PO BID PRN PRN Reason: Constipation - Assessment Assessment (Free Text/Narrative):: POD#3 - left TKA - Plan Plan (Free Text/Narrative):: 1. 325mg ASA PO BID, frequent mobility, TEDs. 2. Discharge to MD today. It is suspected the pt will d/c from the detention within 30 days. 3. Continue with PT and OT at detention. The pt's case was discussed with Dr. Xiao.
[2019-04-25] MEDS: Saccharomyces Boulardii (Probiotic) 250 MG Cap PO SCH (09:58)
[2019-04-25] MEDS: Multivitamins,Therapeutic Tab PO SCH (09:58)
[2019-04-25] MEDS: Famotidine 20 MG Tab PO SCH (09:59)
[2019-04-25] MEDS: Rosuvastatin 10 MG Tab PO SCH (09:59)
[2019-04-25] MEDS: Loratadine 10 MG Tab PO SCH (09:59)
[2019-04-25] MEDS: Docusate Sodium 100 MG Cap PO SCH (09:59)
[2019-04-25] MEDS: Metoprolol Succinate 50 MG Tab.ER PO SCH (10:00)
[2019-04-25] MEDS: Cholecalciferol (Vitamin D3) 5,000 UNIT Tab PO SCH (10:01)
[2019-04-25] MEDS: Aspirin 325 MG Tab.EC PO SCH (10:01)
[2019-04-25] MEDS: CAMPHOR TOP SCH (10:02)
[2019-04-25] MEDS: MENTHOL TOP SCH (10:02)
[2019-04-25] MEDS: Clotrimazole 1% Crm 30 GM Tube TOP SCH (10:02)
--- NOTE | 2019-04-26 11:19 | PCM.OPNOTE ---
- General Post-Op/Procedure Note Date of Surgery/Procedure: 04/22/19 Operative Procedure(s): left total knee arthroplasty Pre Op Diagnosis: left knee osteoarthrosis Post-Op Diagnosis: Same Anesthesia Technique: Local, MAC, Spinal Primary Surgeon: Jefferson Xiao Anesthesia Provider: Alesia Pablo Land Appraiser: Gill Ward Land Appraiser: Ana Pate EBAntonio in mLs: 5 Complications: None Condition: Good Free Text/Narrative:: Intake & Output 04/25/19 04/26/19 04/26/19 22:59 06:59 14:59 Intake Total 480 Balance 480 size 6/6 cemented 11mm 32x10
--- NOTE | 2019-04-26 12:50 | OR ---
DATE OF OPERATION: 04/22/2019 SURGEON: Jefferson Xiao MD OPERATION PERFORMED: Left total knee arthroplasty. PREOPERATIVE DIAGNOSIS: Left knee osteoarthrosis. POSTOPERATIVE DIAGNOSIS: Left knee osteoarthrosis. ANESTHESIA: Local MAC with spinal. ANESTHESIA PROVIDER: Alesia Pablo CRNA. ASSISTANTS: Gill Ward PA-C; and Ana Pate LPN. ESTIMATED BLOOD LOSS: 5 mL. COMPLICATIONS: None. CONDITION: Stable. IMPLANTS: 1. [place] size 6 cemented PS femur. 2. Rosa M size 6 cemented [place] tibial base plate. 3. Rosa M size 6, 11 mm PS X3 polyethylene insert. 4. [place] size 32 x 10 mm cemented asymmetric patella. DESCRIPTION OF PROCEDURE: The patient was identified in the preop holding area. Proper site was marked and identified by the surgeon. The patient was taken back to the operating theater. After adequate anesthesia, the patient's left lower extremity had a nonsterile tourniquet applied and it was sterilely prepped and draped in the usual sterile fashion. OR time-out was performed. The patient received 2 g IV Ancef. At this time, the left lower extremity was exsanguinated. Tourniquet was insufflated to 300 mmHg. Standard medial parapatellar incision was made. Medial parapatellar arthrotomy was created. Deep fibers of the MCL were raised and anterior fat pad was resected. At this time, attention was turned to the patella. Patella measured 24, it was resected to a 14 for a 32 x 10 mm patella. Drill holes were then drilled and found to be in adequate position. The drill was then drilled in the distal femur and the intramedullary distal femoral cutting guide was then placed. An 8 mm was resected off the distal femur and was found to be an adequate resection. Sizing guide was placed. It was found to be a size 6 cemented PS femur that was shown on the implant record at the beginning of this dictation. The drill holes were drilled for the epicondylar axis using [place] line and epicondyles as reference. At this time, the 4-in - 1 cutting block was placed. An anterior posterior and anterior and posterior chamfer cuts were then completed. Box cut was completed. Attention was turned to the tibia. The posterior medial lateral retractors were placed. The extramedullary tibial guide was placed. It was placed in the old footprint of the ACL. It was aligned with the center of the ankle and 0 degrees of slope, 9 mm was then resected off the unaffected side. There was found to be an acceptable reduction. At this time, posterior osteophytes were removed along with medial and lateral meniscus. A trial implant was placed with a correct sized tibia that was mentioned at the beginning of the dictation. A Rosa M size 6, 11 mm PS X3 polyethylene insert was then placed. The patient's knee was brought through range of motion. The patella was tracking centrally and was stable to varus and valgus stress. Alignment was found to be roughly at 0 degrees. The tibia was stamped and drilled in proper rotation. Cement was mixed adn all cut surfaces were irrigated and dried. The universal tibial base plate was impacted in place. Next, the Rosa M size 6 cemented PS femur impacted into place and the [place] size 6, 11 mm PS X3 polyethylene insert was placed. The patient's knee was brought into full extension. Excess cement was removed. The patella was then cemented in place at this time. One liter dilute Betadine solution was irrigated through the knee along with 3 L of pulse lavage irrigation with Ancef. Periarticular injection was then completed. The patient's knee was brought through a range of motion. Once the cement had time to set up and it was found to be stable to varus valgus stress, the patella was tracking centrally with full range of motion. At this time, a #2 barbed suture was used for closure of the medial parapatellar arthrotomy. Topical tranexamic acid was placed. 2-0 Vicryl was used subcutaneously, Prineo was used for the skin. The patient tolerated the procedure well and was sent to the PACU in stable condition. JOHN /[id number] RONALD
--- NOTE | 2019-04-26 13:17 | PCM.DCSUM1 ---
Discharge Summary - Hospital Course Brief History: Mohan is a 58 yo male who underwent left TKA with Dr. Xiao on . The procedure was completed under spinal anesthesia with sedation. The pt tolerated the procedure well and was admitted to the Medical-Surgical Unit. Medical management was provided by the Hospitalist service. The pt's Hospital course was uneventful. The pt's Hgb on POD#1 was 12.0. On POD#1, 325mg ASA BID was initiated for VTE prophylaxis. SCDs and TEDs were also ordered. A Mepilex dressing was placed at the incision site at the time of surgery and remained clean and dry. The pt participated in P.T. and O.T. and progressed well. The pt was allowed to WBAT and used a FWW for mobility. On POD#3, the pt was deemed appropriate to discharge to the custodial for continued rehabilitation. - Discharge Data Discharge Date: 04/25/19 Discharge Disposition: DC/Tfer to SNF 03 Condition: Good - Referral to Home Health Primary Care Physician: Mela Cifuentes MD - Patient Summary/Data Operative Procedure(s) Performed: left total knee arthroplasty Consults: Consultations 04/22/19 06:53 OT Evaluation and Treatment [CONS] Routine PT Evaluation and Treatment [CONS] Routine 04/22/19 14:22 Consult to Case Management/Life Skills Specialist [CONS] Routine - Patient Instructions Diet: Usual Diet as Tolerated Activity: Apply Ice, As Tolerated, Elevate Extremity, Full Weight Bearing Driving: Do Not Drive Showering/Bathing: May Shower Wound/Incision Care: Keep Operative Site/Wound Site Clean and Dry, Do NOT Change Dressing Notify Provider of: Fever, Increased Pain, Swelling and Redness, Drainage, Nausea and/or Vomiting Other/Special Instructions: Please get up and moving around EVERY HOUR while awake. This helps to prevent blood clots. Please use your walker and have help with mobility as needed. Take a short walk in your home every hour while awake. Please take 325mg Aspirin TWICE daily. The aspirin is being used for blood clot prevention and not for pain management so please do not miss a dose of the medication. You could use a medication like Zantac or Pepcid and a medication like Prilosec or Nexium to protect your stomach while you are using the aspirin. At home, please complete the exercises that you learned during the Hospital stay. Schedule for physical therapy. Use the pain medication as needed. The medication may cause drowsiness and constipation. Contact your primary care provider for instructions if you are constipated. You may use a stool softener like docusate sodium or Colace 100mg twice daily and/or a laxative like Miralax daily for constipation. Increase your water and fiber intake while you are using the pain medication. Discontinue use of the pain medication as soon as able. Please do not use other medications that may cause drowsiness (other pain medications, anxiety pills, cold medications, sleeping pills, etc) while using the prescription pain medication. Do not use alcohol while using the pain medication. You may use acetaminophen or Tylenol for pain management, however, please ensure you are not using over 4000 mg or 4 grams of acetaminophen per day from all sources. Your pain medication has 325mg of acetaminophen per tablet. At this time, please do not use ibuprofen (Motrin, Advil) or naproxen (Aleve) for pain management as you are using the aspirin. When the aspirin course is completed in 4 to 6 weeks, you could use ibuprofen or naproxen for pain management (if this is allowed by your primary care provider). Wear the BRYAN hose during the day and you may remove these at night. Elevate the limb to decrease swelling. Place ice to the area often. Place a towel between your skin and the blue pad. Use the incentive spirometer often. Take deep breaths throughout the day. Please keep the dressing in place until follow-up. Notify the Clinic if the dressing becomes saturated. Increase your protein intake while you are healing. If you have diabetes, please closely monitor your blood sugars and notify your primary care provider with abnormal values. Elevated blood sugars increases the risk of infection. Call the Clinic with questions or concerns - [phone]. - Discharge Plan *PRESCRIPTION DRUG MONITORING PROGRAM REVIEWED*: No *COPY OF PRESCRIPTION DRUG MONITORING REPORT IN PATIENT MAIRA: No Prescriptions/Med Rec: Acetaminophen/oxyCODONE [Percocet 325-5 MG] 1 - 2 tab PO Q4H PRN #60 tablet PRN Reason: Pain Aspirin [Ecotrin EC] 325 mg PO BID #84 tab.ec Cyclobenzaprine [Flexeril] 10 mg PO BID PRN #30 tablet PRN Reason: Spasms Home Medications: Home Meds Camphor/Menthol [Sarna Lotion] 1 applic TP TID 12/11/18 [History] Cetirizine [ZyrTEC] 10 mg PO DAILY 12/11/18 [History] Clotrimazole [Lotrimin AF 1% Crm] 30 gm TOP BID 12/11/18 [History] EPINEPHrine [Epinephrine] 0.3 mg IM ASDIRECTED PRN 12/11/18 [History] L. Acidophilus/L.bulgaricus [Lactobacillus Tablet] 1 tab PO DAILY 12/11/18 [ History] Menthol/Zinc Oxide [Calmoseptine] 1 applic TOP ASDIRECTED PRN 12/11/18 [History] Methylcellulose [Fiber Therapy] 1,500 mg PO DAILY 12/11/18 [History] Metoprolol Succinate [Toprol XL 50mg] 50 mg PO DAILY 12/11/18 [History] Multivitamin [Daily Multiple Vitamin] 1 tab PO DAILY 12/11/18 [History] Polyethylene Glycol 3350 [MiraLAX] 17 gm PO Q72H 12/11/18 [History] Rosuvastatin [Crestor] 5 mg PO DAILY 12/11/18 [History] Cholecalciferol (Vitamin D3) [Vitamin D3] 5,000 unit PO DAILY 04/19/19 [History] Levothyroxine [Synthroid] 50 mcg PO DAILY 04/19/19 [History] Acetaminophen/oxyCODONE [Percocet 325-5 MG] 1 - 2 tab PO Q4H PRN #60 tablet [Rx] Aspirin [Ecotrin EC] 325 mg PO BID #84 tab.ec 04/23/19 [Rx] Bisacodyl [Dulcolax] 5 mg PO DAILY PRN tablet 04/23/19 [Rx] Cyclobenzaprine [Flexeril] 10 mg PO BID PRN #30 tablet 04/23/19 [Rx] Docusate Sodium [Colace] 100 mg PO BID cap 04/23/19 [Rx] Famotidine [Pepcid] 20 mg PO Q12H tablet 04/23/19 [Rx] Magnesium Hydroxide [Milk of Magnesia] 30 ml PO BID PRN cup 04/23/19 [Rx] Sennosides [Senna] 8.6 mg PO BID PRN tablet 04/23/19 [Rx] Patient Handouts: Total Knee Replacement, [place] Referrals: Mela Cifuentes MD [Primary Care Provider] - 04/30/19 9:00 am (please attend the scheduled follow up appointment with your primary care provider.) Gill Ward PA-C [Physician Rn Medical Surgical] - (Please follow up with DIGNA Clark on April 30 at 10:15, May 07 at 10:15, & June 07 at 10:15.) - Discharge Summary/Plan Comment DC Time >30 min.: No - Patient Data Vitals - Most Recent: Last Vital Signs Temp 97.9 F 04/25/19 08:37 Pulse 95 04/25/19 10:00 Resp 20 04/25/19 08:37 BP 127/63 04/25/19 10:00 Pulse Ox 92 L 04/25/19 08:37 Weight - Most Recent: 230 lb 2.6 oz I&O - Last 24 hours: Intake & Output 04/25/19 04/26/19 04/26/19 22:59 06:59 14:59 Intake Total 480 Balance 480 Med Orders - Current: Current Medications Discontinued Medications Aspirin (Ecotrin) 325 mg PO BID KEMAL Last Admin: 04/25/19 10:01 Dose: 325 mg Bisacodyl (Dulcolax) 5 mg PO DAILY PRN PRN Reason: Constipation Last Admin: 04/25/19 12:30 Dose: 5 mg Bisacodyl (Dulcolax) 10 mg RECTAL ONETIME ONE Stop: 04/25/19 07:01 Last Admin: 04/25/19 10:11 Dose: 10 mg Bisacodyl (Dulcolax) 10 mg RECTAL ONETIME ONE Stop: 04/25/19 10:16 Last Admin: 04/25/19 12:30 Dose: Not Given Bupivacaine HCl (Sensorcaine-Mpf 0.25%) Confirm Administered Dose 30 ml .ROUTE .STK-MED ONE Stop: 04/22/19 07:04 Last Admin: 04/22/19 10:07 Dose: 30 ml Calamine/Phenol (Calmoseptine) 0 gm TOP ASDIRECTED PRN PRN Reason: Itching/Rash Cefazolin Sodium (Ancef) Confirm Administered Dose 2 gm .ROUTE .STK-MED ONE Stop: 04/22/19 07:04 Last Admin: 04/22/19 10:03 Dose: 2 gm Cefazolin Sodium (Ancef) Confirm Administered Dose 2 gm .ROUTE .STK-MED ONE Stop: 04/22/19 07:55 Cholecalciferol (Vitamin D3) 5,000 unit PO DAILY [facility] Last Admin: 04/25/19 10:01 Dose: 5,000 unit Clotrimazole (Lotrimin Af 1% Crm) 0 gm TOP BID [facility] Last Admin: 04/25/19 10:02 Dose: Not Given Morphine Sulfate 8 mg/Epinephrine HCl 0.3 mg/Cefuroxime Sodium 750 mg/Ketorolac Tromethamine 30 mg/Sodium Chloride 27.9 ml 0 mg .XX ONETIME ONE Stop: 04/22/19 09:01 Last Admin: 04/22/19 10:06 Dose: 788.3 mg Cyclobenzaprine HCl (Flexeril) 10 mg PO BID PRN PRN Reason: Spasms Last Admin: 04/24/19 15:08 Dose: 10 mg Diphenhydramine HCl (Benadryl) 25 mg IVPUSH Q6H PRN PRN Reason: pruritis Stop: 04/22/19 23:00 Docusate Sodium (Colace) 100 mg PO BID [facility] Last Admin: 04/25/19 09:59 Dose: 100 mg Epinephrine HCl (Adrenalin) Confirm Administered Dose 1 mg .ROUTE .STK-MED ONE Stop: 04/22/19 07:33 Famotidine (Pepcid) 20 mg PO Q12H [facility] Last Admin: 04/25/19 09:59 Dose: 20 mg Fentanyl (Sublimaze) 50 mcg IVPUSH Q5M PRN PRN Reason: Pain Stop: 04/22/19 23:00 Hydromorphone HCl (Dilaudid) 0.2 mg IVPUSH Q2H PRN PRN Reason: Pain (moderate 4-6) Lactated Ringer's (Ringers, Lactated) 1,000 mls @ 125 mls/hr IV ASDIRECTED [facility] Stop: 04/22/19 23:00 Last Admin: 04/22/19 07:30 Dose: 125 mls/hr Cefazolin Sodium/Dextrose 2 gm (/ Premix) 50 mls @ 100 mls/hr IV Q8H [facility] Stop: 04/23/19 09:29 Last Admin: 04/23/19 08:10 Dose: 100 mls/hr Lidocaine HCl (Xylocaine-Mpf 1%) Confirm Administered Dose 4 mls @ as directed .ROUTE .STK-MED ONE Stop: 04/22/19 07:54 Lactated Ringer's (Ringers, Lactated) Confirm Administered Dose 1,000 mls @ as directed .ROUTE .STK-MED ONE Stop: 04/22/19 09:19 Iodine (Iodine 2% Mild Tincture) Confirm Administered Dose 30 ml .ROUTE .STK- MED ONE Stop: 04/22/19 07:04 Last Admin: 04/22/19 09:59 Dose: 18 ml Ketamine HCl (Ketalar) Confirm Administered Dose 500 mg .ROUTE .STK-MED ONE Stop: 04/22/19 09:04 Ketorolac Tromethamine (Toradol) 15 mg IVPUSH Q6H PRN PRN Reason: Pain Last Admin: 04/23/19 20:29 Dose: 15 mg Ketorolac Tromethamine (Toradol) 15 mg IVPUSH ONETIME KEMAL Stop: 04/22/19 13:00 Levothyroxine Sodium (Synthroid) 50 mcg PO ACBREAKFAST [facility] Last Admin: 04/25/19 05:27 Dose: 50 mcg Lidocaine/Sodium Bicarbonate (Buffered Lidocaine 1% In Ns 8.4%) 0.25 ml IDERM ONETIME PRN PRN Reason: Prior to IV Start Stop: 04/22/19 18:00 Loratadine (Claritin) 10 mg PO DAILY [facility] Last Admin: 04/25/19 09:59 Dose: 10 mg Magnesium Hydroxide (Milk Of Magnesia) 30 ml PO BID PRN PRN Reason: Constipation Last Admin: 04/24/19 20:59 Dose: 30 ml Metoprolol Succinate (Toprol Xl) 50 mg PO DAILY [facility] Last Admin: 04/25/19 10:00 Dose: 50 mg Midazolam HCl (Versed 1 Mg/Ml) Confirm Administered Dose 2 mg .ROUTE .STK-MED ONE Stop: 04/22/19 07:53 Multivitamins (Thera) 1 each PO DAILY [facility] Last Admin: 04/25/19 09:58 Dose: 1 each Naloxone HCl (Narcan) 0.1 mg IVPUSH Q5M PRN PRN Reason: Oversedation Non-Formulary Medication (Epinephrine [Epinephrine]) 0.3 mg IM ASDIRECTED PRN PRN Reason: Allergic Reaction Non-Formulary Medication (Methylcellulose) 1,500 mg PO DAILY [facility] Ondansetron HCl (Zofran) 4 mg IVPUSH Q6H PRN PRN Reason: Nausea/Vomiting Ondansetron HCl (Zofran) Confirm Administered Dose 4 mg .ROUTE .STK-MED ONE Stop: 04/22/19 07:57 Ondansetron HCl (Zofran) 4 mg IVPUSH ONETIME PRN PRN Reason: Nausea/Vomiting Stop: 04/22/19 23:00 Oxycodone/Acetaminophen (Percocet 325-5 Mg) 1 - 2 tab PO Q4H PRN PRN Reason: Pain Last Admin: 04/25/19 12:30 Dose: 1 tab Camphor/Menthol (Ptom) 0 each TOP TID [facility] Last Admin: 04/25/19 10:02 Dose: Not Given Polyethylene Glycol (Miralax) 17 gm PO Q72H [facility] Last Admin: 04/23/19 08:17 Dose: 17 gm Propofol (Diprivan 20 Ml) Confirm Administered Dose 400 mg .ROUTE .STK-MED ONE Stop: 04/22/19 07:53 Propofol (Diprivan 20 Ml) Confirm Administered Dose 200 mg .ROUTE .STK-MED ONE Stop: 04/22/19 09:41 Propofol (Diprivan 20 Ml) Confirm Administered Dose 200 mg .ROUTE .STK-MED ONE Stop: 04/22/19 10:23 Ropivacaine (Naropin 0.5%) Confirm Administered Dose 30 ml .ROUTE .STK-MED ONE Stop: 04/22/19 07:33 Rosuvastatin Calcium (Crestor) 5 mg PO DAILY [facility] Last Admin: 04/25/19 09:59 Dose: 5 mg Saccharomyces Boulardii (Florastor) 250 mg PO DAILY [facility] Last Admin: 04/25/19 09:58 Dose: 250 mg Senna (Senna) 8.6 mg PO BID PRN PRN Reason: Constipation Sodium Chloride (Saline Flush) 10 ml FLUSH ASDIRECTED PRN PRN Reason: Keep Vein Open Stop: 04/22/19 18:00 Tranexamic Acid (Cyklokapron) Confirm Administered Dose 1,000 mg .ROUTE .STK- MED ONE Stop: 04/22/19 07:03 Last Admin: 04/22/19 10:14 Dose: 1,000 mg Vancomycin HCl (Vancomycin) Confirm Administered Dose 1 gm .ROUTE .STK-MED ONE Stop: 04/22/19 07:03 Last Admin: 04/22/19 10:15 Dose: 1 gm
== END 2019-04-25 12:55 | DRG 470 ==
LOC: JD.SDS 06:41 → JD.MS 06:43 → JD.SDS 04-23 16:18 → JD.MS 04-23 16:18
PROVIDERS: ADMIT Orthopaedic Surgery; ATTEND Orthopaedic Surgery
PROC: 0SRD0J9 Replacement of Left Knee Joint with Synthetic Substitute, Cemented, Open Approach (ICD-10-PCS; principal; 2019-04-22)
DX: M17.12 Unilateral primary osteoarthritis, left knee (principal); M75.01 Adhesive capsulitis of right shoulder; G89.18 Other acute postprocedural pain; I10 Essential (primary) hypertension; E03.9 Hypothyroidism, unspecified; E78.00 Pure hypercholesterolemia, unspecified; E78.5 Hyperlipidemia, unspecified; R73.9 Hyperglycemia, unspecified; E66.9 Obesity, unspecified; G47.00 Insomnia, unspecified; F71 Moderate intellectual disabilities; Z79.82 Long term (current) use of aspirin; Z86.010 Personal history of colon polyps; Z79.899 Other long term (current) drug therapy; Z87.891 Personal history of nicotine dependence; Z90.49 Acquired absence of other specified parts of digestive tract; Z88.8 Allergy status to other drugs, medicaments and biological substances; Z68.32 Body mass index [BMI] 32.0-32.9, adult
CPT/HCPCS: 27447; 36415; 73560; 80053; 85027; 87641; 97110 ×2; 97116 ×2; 97161; 97165; 97535 ×2; A9270 ×17; C1713; C1776 ×4; J0171 ×2; J0690 ×5; J0697; J1885 ×3; J2001; J2250; J2270; J2405; J2704 ×3; J2795; J3370; J3490; J7120 ×2; 01402; 64450; 80048; 83735; 85025

== ENCOUNTER 2023-12-28 06:16 | Day surgery (SDC) | payer OTHER, MEDICAID ==
[2023-12-28] MEDS: Polymyxin B/Trimethoprim 10 ML Bottle EYERT SCH (07:01)
[2023-12-28] MEDS: Brimonidine 0.2% Ophth Soln 5 ML Bottle EYERT SCH (07:12)
[2023-12-28] MEDS: Phenylephrine 2.5% Ophth Soln 2 ML Bot EYERT SCH (07:16)
[2023-12-28] MEDS: Tropicamide 1% Ophth Soln 3 ML Bottle EYERT SCH (07:21)
[2023-12-28] MEDS: Tetracaine HCl/PF 0.5% 4 ML Bottle EYEBOTH SCH (07:58)
[2023-12-28] MEDS: Lidocaine 1% PF 2 ML SDV INJECT SCH (08:13)
[2023-12-28] MEDS: Cefuroxime 10 MG/ML SYRINGE EYERT SCH (08:20)
[2023-12-28] MEDS: Pilocarpine 4% Ophth Soln 15 ML Bot EYERT SCH (08:26)
== END 2023-12-28 08:45 | disposition home or self-care (01) ==
LOC: JD.SDS 06:16
PROVIDERS: ATTEND Ophthalmology
DX: E11.36 Type 2 diabetes mellitus with diabetic cataract (principal); H25.813 Combined forms of age-related cataract, bilateral; I10 Essential (primary) hypertension; E78.2 Mixed hyperlipidemia; H16.103 Unspecified superficial keratitis, bilateral; H16.223 Keratoconjunctivitis sicca, not specified as Sjogren's, bilateral; H40.013 Open angle with borderline findings, low risk, bilateral; H21.81 Floppy iris syndrome; Z79.82 Long term (current) use of aspirin; Z79.84 Long term (current) use of oral hypoglycemic drugs; Z79.899 Other long term (current) drug therapy
CPT/HCPCS: 66984; A9270; J0697; J3490

== ENCOUNTER 2024-01-25 06:40 | Day surgery (SDC) | payer OTHER, MEDICAID ==
[2024-01-25] MEDS: Polymyxin B/Trimethoprim 10 ML Bottle EYELF SCH (07:02)
[2024-01-25] MEDS: Brimonidine 0.2% Ophth Soln 5 ML Bottle EYELF SCH (07:08)
[2024-01-25] MEDS: Phenylephrine 2.5% Ophth Soln 2 ML Bot EYELF SCH (07:12)
[2024-01-25] MEDS: Tropicamide 1% Ophth Soln 3 ML Bottle EYELF SCH (07:16)
[2024-01-25] MEDS: Tetracaine HCl/PF 0.5% 4 ML Bottle EYEBOTH SCH (07:54)
[2024-01-25] MEDS: Lidocaine 1% PF 2 ML SDV INJECT SCH (08:15)
[2024-01-25] MEDS: Cefuroxime 10 MG/ML SYRINGE EYELF SCH (08:28)
[2024-01-25] MEDS: Pilocarpine 4% Ophth Soln 15 ML Bot EYELF SCH (08:28)
== END 2024-01-25 08:40 | disposition home or self-care (01) ==
LOC: JD.SDS 06:40
PROVIDERS: ATTEND Ophthalmology
DX: E11.36 Type 2 diabetes mellitus with diabetic cataract (principal); H25.812 Combined forms of age-related cataract, left eye; H52.31 Anisometropia; H16.103 Unspecified superficial keratitis, bilateral; H16.223 Keratoconjunctivitis sicca, not specified as Sjogren's, bilateral; H40.013 Open angle with borderline findings, low risk, bilateral; H21.81 Floppy iris syndrome; E78.00 Pure hypercholesterolemia, unspecified; I10 Essential (primary) hypertension; E03.9 Hypothyroidism, unspecified; Z87.891 Personal history of nicotine dependence; Z79.899 Other long term (current) drug therapy; Z79.890 Hormone replacement therapy; Z79.84 Long term (current) use of oral hypoglycemic drugs; Z79.82 Long term (current) use of aspirin; Z96.1 Presence of intraocular lens; Z91.030 Bee allergy status; Z88.5 Allergy status to narcotic agent; Z88.0 Allergy status to penicillin; Z88.8 Allergy status to other drugs, medicaments and biological substances; Z91.018 Allergy to other foods
CPT/HCPCS: 66984; A9270; J0697; J3490; V2632